=== PATIENT | female | born 1940 | race Caucasian/White ===

== ENCOUNTER → 2016-10-24 | Outpatient (CLI) | payer MEDICARE, BC | LOC: RAD 09:13 | PROVIDERS: ATTEND Urology | DX: R31.0 Gross hematuria (principal) | CPT/HCPCS: 74178; 82565 ==

== ENCOUNTER 2017-07-08 08:47 | Day surgery (SDC) | payer MEDICARE, BC ==
[2017-06-30 09:01] LABS: ABSOLUTE EOSINOPHILS # (AUTO) 0.1 10^3/uL (0.0-0.6); ABSOLUTE LYMPHOCYTES (AUTO) 1.6 10^3/uL (0.5-4.7); ABSOLUTE MONOCYTES (AUTO) 0.5 10^3/uL (0.1-1.4); BASOPHILS % (AUTO) 0.6 % (0-2); EOSINOPHILS % (AUTO) 2.4 % (0-6); HEMATOCRIT 40.7 % (36.0-47.0); HEMOGLOBIN 13.9 g/dL (12.0-15.5); LYMPHOCYTES % (AUTO) 25.7 % (13-45); MEAN CORPUSCULAR HEMOGLOBIN 33.7 pg (27.0-33.4); MEAN CORPUSCULAR HGB CONC 34.1 g/dL (32.0-36.0); MEAN CORPUSCULAR VOLUME 99 fl (80-97); RED BLOOD COUNT 4.12 10^6/uL (3.72-5.28); RED CELL DISTRIBUTION WIDTH 13.9 % (11.5-14.0); SEGMENTED NEUTROPHILS % (AUTO) 63.3 % (42-78); WHITE BLOOD COUNT 6.2 10^3/uL (4.0-10.5)
[2017-06-30 09:12] LABS: PROTHROMBIN TIME 13.3 SEC (11.4-15.4)
[2017-06-30 09:13] LABS: APPEARANCE,URINE SLIGHTLY-CLOUDY; BILIRUBIN,URINE NEGATIVE (NEGATIVE); GLUCOSE, URINE NEGATIVE (NEGATIVE); KETONES,URINE NEGATIVE (NEGATIVE); LEUKOCYTE ESTERASE,URINE MODERATE (NEGATIVE); NITRITE,URINE NEGATIVE (NEGATIVE); PROTEIN,URINE 30 mg/dL (NEGATIVE); URINE SPECIFIC GRAVITY 1.014; UROBILINOGEN,URINE NEGATIVE mg/dL (<2.0)
[~2017-07-08 08:47] MED LIST: CEFAZOLIN 1 GM/D5W RTU 1 GM/50 ML RTUPB IV PRN; LACTATED RINGERS 1000 ML IV PRN; LIDOCAINE 0.5% INJ-PF (5 MG/ML) 50 ML SDV SUBCUT PRN
[2017-07-08] MEDS ORDERED: LIDOCAINE 1% INJ-PF (10 MG/ML) 30 ML SDV ONE ×2 (08:54→10:28)
[2017-07-08] MEDS ORDERED: BUPIVACAINE HCL 0.25% /EPINEPHRINE INJ/PF 30 ML SDV ONE ×2 (08:54→10:28)
[2017-07-08] MEDS ORDERED: TRIAMCINOLONE ACETONIDE INJ 40 MG/1 ML VIAL ONE (08:55)
[2017-07-08 09:29] LABS: PROTHROMBIN TIME 12.4 SEC (11.4-15.4)
[2017-07-08 09:30] LABS: PARTIAL THROMBOPLASTIN TIME 26.2 SEC (23.5-35.8)
[2017-07-08] MEDS ORDERED: PROPOFOL INJ 200 MG/20 ML VIAL IV ONE (10:26)
[2017-07-08] MEDS ORDERED: MIDAZOLAM 2 MG/2 ML INJ ONE (10:26)
[2017-07-08] MEDS ORDERED: DIPHENHYDRAMINE HCL 50 MG/ML VIAL IV PRN (11:13)
[2017-07-08] MEDS ORDERED: MORPHINE SULFATE 10 MG/ML INJ IV PRN (11:13)
[2017-07-08] MEDS ORDERED: OXYCODONE-ACETAMINOPHEN 5-325 MG TABLET PO PRN ×3 (11:13→12:08)
[2017-07-08] MEDS ORDERED: PROMETHAZINE HCL INJ 25 MG/1 ML VIAL IV PRN ×2 (11:13)
--- NOTE | 2017-07-08 13:09 | EKG REPORT ---
SEVERITY:- ABNORMAL ECG - ACCELERATED JUNCTIONAL ESCAPE RHYTHM LVH WITH SECONDARY REPOLARIZATION ABNORMALITY : Confirmed by: Nelson Flores MD 08-Jul-2017 13:08:51
[2017-07-08 14:50] VITALS: BP 189/80
--- NOTE | 2017-07-08 15:31 | OPERATIVE REPORT E ---
Operative Report NAME: EDEN TRAORE : 1940 AGE: 77Y DATE OF SURGERY: 07/08/2017 ROOM: ADDENDUM:NAYE SALES M.D. PROCEDURE: After obtaining informed consent, advising patient of risks and benefits, including serious neurological injury, bleeding, infection, paralysis, aggravation of pain, infection, and , allergic reaction, she was taken to the operating room and placed comfortably in the prone position. Monitors were applied per Anesthesia. She was assessed visually and verbally for comfort. She was then prepped with chlorhexidine followed by a sterile drape. Fluoroscopy was used to evaluate the spine. The L4-5 target space was identified. An attempt was made to use an epidural needle after anesthetizing with 1% lidocaine to enter at the midline L4-5 level. This was not possible, so positioning of the epidural needle was placed at the 3-4 level. Epidurogram was performed with spread and some limitation at the 4-5 level. Landmarks were identified and a suitable track was determined for placement of the mild instrumentation. Beginning on the left side, a small incision was made after local anesthetic of 1% lidocaine was applied. This was repeated on the right side at the selected entrance level. The mild instrumentation trocar was then advanced through the small incision down to the lamina of the 4-5 level on the left. Multiple x-ray views were taken, particularly the oblique and AP to assure satisfactory location. A small amount of additional local anesthetic 1% lidocaine 2 mL was instilled through the trocar. The bone rongeur was then utilized to remove the lamina and ligament at that level on the left in the superior and inferior regions. The tissue sculptor was then utilized to remove additional tissue. Improvement of the contrast spread was noted. This procedure was then repeated on the right as described above. Again, additional improvement in the contrast spread was noted. There was felt to be satisfactorily opening of the epidural space at the level, resolving some of the spinal stenosis. Through the epidural needle, 80 mg of Kenalog was then inserted. All instrumentation was then removed. The region was cleansed. Steri-Strips were placed followed by sterile dressings. The patient was then taken to the PACU for further postoperative care and monitoring. DICTATING PHYSICIAN: NAYE SALES M.D. [id number] PHY#: [id number] ID: [id number] JOB#: [id number] ACCT: [id number] cc:NAYE SALES M.D. >
--- NOTE | 2017-07-08 17:22 | RADIOLOGY REPORT (SQ) ---
EXAM DESCRIPTION: L SPINE 2 VIEWS; NO CHG FLUORO COMPLETED DATE/TIME: 07/08/2017 4:11 pm REASON FOR STUDY: LUMBAR DECOMPRESSION M48.07 SPINAL STENOSIS, LUMBOSACRAL REGION Z79.01 [facility] HOME (CURRENT) USE OF ANTICOAGULANTS COMPARISON: MRI lumbar spine 04/03/2011 CT abdomen pelvis 10/24/2016 FLUOROSCOPY TIME: 4.5 minutes 15 series of digital images saved to PACS. TECHNIQUE: Intra-operative images acquired during surgical procedure to evaluate progress. NUMBER OF IMAGES: Cine fluoroscopic images. LIMITATIONS: None. FINDINGS: Intra procedural imaging and fluoro during procedure by Dr. Hernandez. Please see the oper ative report further details IMPRESSION: Intra procedural imaging and fluoro COMMENT: Quality ID [id number]: Final reports for procedures using fluoroscopy that document radiation exp osure indices, or exposure time and number of fluorographic images (if radiation exposure indices are not available) Please consult full operative report of the attending physician for description of the procedure. TECHNICAL DOCUMENTATION: JOB ID: [id number] [employer]- All Rights Reserved
--- NOTE | 2017-07-08 17:22 | RADIOLOGY REPORT (SQ) ---
EXAM DESCRIPTION: L SPINE 2 VIEWS; NO CHG FLUORO COMPLETED DATE/TIME: 07/08/2017 4:11 pm REASON FOR STUDY: LUMBAR DECOMPRESSION M48.07 SPINAL STENOSIS, LUMBOSACRAL REGION Z79.01 [facility] (CURRENT) USE OF ANTICOAGULANTS COMPARISON: MRI lumbar spine 04/03/2011 CT abdomen pelvis 10/24/2016 FLUOROSCOPY TIME: 4.5 minutes 15 series of digital images saved to PACS. TECHNIQUE: Intra-operative images acquired during surgical procedure to evaluate progress. NUMBER OF IMAGES: Cine fluoroscopic images. LIMITATIONS: None. FINDINGS: Intra procedural imaging and fluoro during procedure by Dr. Hernandez. Please see the oper ative report further details IMPRESSION: Intra procedural imaging and fluoro COMMENT: Quality ID [id number]: Final reports for procedures using fluoroscopy that document radiation exp osure indices, or exposure time and number of fluorographic images (if radiation exposure indices are not available) Please consult full operative report of the attending physician for description of the procedure. TECHNICAL DOCUMENTATION: JOB ID: [id number] [employer]- All Rights Reserved
--- NOTE | 2017-07-09 14:51 | OPERATIVE REPORT E ---
Operative Report NAME: EDEN TRAORE : 1940 AGE: 77Y DATE OF SURGERY: ROOM: PREOPERATIVE DIAGNOSIS: LUMBAR SPINAL STENOSIS WITH NEUROGENIC CLAUDICATION L4-5 LEVEL. POSTOPERATIVE DIAGNOSIS: LUMBAR SPINAL STENOSIS WITH NEUROGENIC CLAUDICATION L4-5 LEVEL. OPERATIVE PROCEDURE: Minimally invasive lumbar decompression at L4-5 using bilateral approach under fluoroscopic guidance lumbar epidural steroid injection. PROCEDURE: After obtaining informed consent, advising patient of risks and benefits, including serious neurological injury, bleeding, infection, paralysis, aggravation of pain, infection, and , allergic reaction, she was taken to the operating room and placed comfortably in the prone position. Monitors were applied per Anesthesia. She was assessed visually and verbally for comfort. She was then prepped with chlorhexidine followed by a sterile drape. Fluoroscopy was used to evaluate the spine. The L4-5 target space was identified. An attempt was made to use an epidural needle after anesthetizing with 1% lidocaine to enter at the midline L4-5 level. This was not possible, so positioning of the epidural needle was placed at the 3-4 level. Epidurogram was performed with spread and some limitation at the 4-5 level. Landmarks were identified and a suitable track was determined for placement of the mild instrumentation. Beginning on the left side, a small incision was made after local anesthetic of 1% lidocaine was applied. This was repeated on the right side at the selected entrance level. The mild instrumentation trocar was then advanced through the small incision down to the lamina of the 4-5 level on the left. Multiple x-ray views were taken, particularly the oblique and AP to assure satisfactory location. A small amount of additional local anesthetic 1% lidocaine 2 mL was instilled through the trocar. The bone rongeur was then utilized to remove the lamina and ligament at that level on the left in the superior and inferior regions. The tissue sculptor was then utilized to remove additional tissue. Improvement of the contrast spread was noted. This procedure was then repeated on the right as described above. Again, additional improvement in the contrast spread was noted. There was felt to be satisfactorily opening of the epidural space at the level, resolving some of the spinal stenosis. Through the epidural needle, 80 mg of Kenalog was then inserted. All instrumentation was then removed. The region was cleansed. Steri-Strips were placed followed by sterile dressings. The patient was then taken to the PACU for further postoperative care and monitoring. DICTATING PHYSICIAN: NAYE SALES M.D. [id number] PHY#: [id number] ID: [id number] JOB#: [id number] ACCT: [id number] cc:NAYE SALES M.D. >
== END 2017-07-08 13:44 | disposition home or self-care (01) ==
LOC: OROUT 08:47
PROVIDERS: ATTEND Pain Medicine Interventional Pain Medicine
PROC: 01NB3ZZ Release Lumbar Nerve, Percutaneous Approach (ICD-10-PCS; principal; 2017-07-08 11:00)
DX: M48.07 Spinal stenosis, lumbosacral region (principal); Z00.6 Encounter for examination for normal comparison and control in clinical research program; I49.9 Cardiac arrhythmia, unspecified; I10 Essential (primary) hypertension; Z86.73 Personal history of transient ischemic attack (TIA), and cerebral infarction without residual deficits; Z79.01 Long term (current) use of anticoagulants; Z87.892 Personal history of anaphylaxis
CPT/HCPCS: 36415 ×2; 85025; 85610 ×2; 85730 ×2; 81001; 72100; 93005; 93010; 0275T; Q9966; J2250; J3490 ×3; J0690; J2704; 1936

== ENCOUNTER → 2018-05-13 | Outpatient (CLI) | payer MEDICARE, BC ==
[2018-05-13 09:22] LABS: ABSOLUTE EOSINOPHILS # (AUTO) 0.2 10^3/uL (0.0-0.6); ABSOLUTE LYMPHOCYTES (AUTO) 1.8 10^3/uL (0.5-4.7); ABSOLUTE MONOCYTES (AUTO) 0.5 10^3/uL (0.1-1.4); ABSOLUTE NEUT (AUTO) 2.5 10^3/uL (1.7-8.2); BASOPHILS % (AUTO) 0.6 % (0-2); EOSINOPHILS % (AUTO) 4.7 % (0-6); HEMATOCRIT 37.5 % (36.0-47.0); HEMOGLOBIN 12.6 g/dL (12.0-15.5); LYMPHOCYTES % (AUTO) 36.3 % (13-45); MEAN CORPUSCULAR HEMOGLOBIN 32.8 pg (27.0-33.4); MEAN CORPUSCULAR HGB CONC 33.6 g/dL (32.0-36.0); MEAN CORPUSCULAR VOLUME 98 fl (80-97); MONOCYTES % (AUTO) 10.1 % (3-13); PLATELET COUNT 262 10^3/uL (150-450); RED BLOOD COUNT 3.84 10^6/uL (3.72-5.28); RED CELL DISTRIBUTION WIDTH 14.1 % (11.5-14.0); SEGMENTED NEUTROPHILS % (AUTO) 48.3 % (42-78); TOTAL CELLS COUNTED % (AUTO) 100 %; WHITE BLOOD COUNT 5.1 10^3/uL (4.0-10.5)
[2018-05-13 09:42] LABS: ALANINE AMINOTRANSFERASE 25 U/L (9-52); ALBUMIN 3.8 g/dL (3.5-5.0); ALKALINE PHOSPHATASE 66 U/L (38-126); ANION GAP 8 (5-19); ASPARTATE AMINO TRANSFERASE 20 U/L (14-36); BILIRUBIN,DIRECT 0.3 mg/dL (0.0-0.4); BILIRUBIN,TOTAL 0.3 mg/dL (0.2-1.3); BLOOD UREA NITROGEN 22 mg/dL (7-20); CALCIUM 9.6 mg/dL (8.4-10.2); CARBON DIOXIDE 28 mmol/L (22-30); CHLORIDE 107 mmol/L (98-107); GLUCOSE 96 mg/dL (75-110); POTASSIUM 3.8 mmol/L (3.6-5.0); SODIUM 142.9 mmol/L (137-145); TOTAL PROTEIN 6.7 g/dL (6.3-8.2)
== END ==
LOC: LAB 08:40
PROVIDERS: ATTEND Physician Assistant
DX: I10 Essential (primary) hypertension (principal); I48.2 Chronic atrial fibrillation; R19.7 Diarrhea, unspecified; R26.81 Unsteadiness on feet
CPT/HCPCS: 36415; 80053; 85025

== ENCOUNTER 2018-05-20 10:37 | Emergency (ER) | payer MEDICARE, BC ==
--- NOTE | 2018-05-20 11:08 | ER Document Report ---
ED Skin Rash/Insect Bite/Abscs - General Chief Complaint: Skin Problem Stated Complaint: ARM WOUND Time Seen by Provider: 05/20/18 11:06 Mode of Arrival: Ambulatory Information source: Patient Notes: Chief complaint: Left upper arm wound History of complain:( obtained from----patient) 78 years old female sustaining a wound over the left upper arm a week ago she was putting antibiotic ointment and healing well except 3 days ago she put her gauze and it got stuck to the wound and unable to take it out. Therefore presented to the ED Denies any fever chills or other constitutional symptoms Onset: As above Duration: Last 1 week Severity: Mild Quality: No pain Context: Contrast as described above Exacerbating factor and relieving factors: None REVIEW OF SYSTEMS: CONSTITUTIONAL : Denies fever, chills, or sweats. Denies recent illness. EENT: Denies eye, ear, throat, or mouth pain or symptoms. Denies nasal or sinus congestion or discharge. Denies throat, tongue, or mouth swelling or difficulty swallowing. CARDIOVASCULAR: Denies chest pain. Denies palpitations or racing or irregular heart beat. Denies ankle edema. RESPIRATORY: Denies cough, cold, or chest congestion. Denies shortness of breath, difficulty breathing, or wheezing. GASTROINTESTINAL: Denies distention. Denies nausea, vomiting, or diarrhea. Denies blood in vomitus, stools, or per rectum. Denies black, tarry stools. Denies constipation. GENITOURINARY: Denies difficulty urinating, painful urination, burning, frequency, blood in urine, or discharge. FEMALE GENITOURINARY: Denies vaginal bleeding, heavy or abnormal periods, irregular periods. Denies vaginal discharge or odor. MUSCULOSKELETAL: Denies back or neck pain or stiffness. Denies joint pain or swelling. SKIN: Denies rash, lesions or sores. HEMATOLOGIC : Denies easy bruising or bleeding. LYMPHATIC: Denies swollen, enlarged glands. NEUROLOGICAL: Denies confusion or altered mental status. Denies passing out or loss of consciousness. Denies dizziness or lightheadedness. Denies headache. Denies weakness or paralysis or loss of use of either side. Denies problems with gait or speech. Denies sensory loss, numbness, or tingling. Denies seizures. PSYCHIATRIC: Denies anxiety or stress. Denies depression, suicidal ideation, or homicidal ideation. ALL OTHER SYSTEMS REVIEWED AND NEGATIVE. PHYSICAL EXAMINATION: GENERAL: Well-appearing, well-nourished and in no acute distress. Pleasant female not in any acute distress HEAD: Atraumatic, normocephalic. EYES: Pupils equal round and reactive to light, extraocular movements intact, conjunctiva are normal. ENT: Nares patent, oropharynx clear without exudates. Moist mucous membranes. NECK: Normal range of motion, supple without lymphadenopathy LUNGS: Breath sounds clear to auscultation bilaterally and equal. No wheezes rales or rhonchi. HEART: Regular rate and rhythm without murmurs ABDOMEN: Soft, nontender, nondistended abdomen. No guarding, no rebound. No masses appreciated. Examination of genitals-deferred Musculoskeletal: Normal range of motion, no pitting or edema. No cyanosis. NEUROLOGICAL: Cranial nerves grossly intact. Normal speech, normal gait. Normal sensory, motor exams PSYCH: Normal mood, normal affect. SKIN: Skin over the left lateral arm over the medial region has extensive erythematous scarring wound of 4" x 3" noted. The middle a gauze got stuck in the and unable to remove. No surrounding erythema noted. Is not warm or tender to touch. Dictation was performed using [employer] voice recognition software TRAVEL OUTSIDE OF THE [place] IN LAST 30 DAYS: No - HPI Notes: Dictated - Related Data Allergies/Adverse Reactions: fentanyl [From Duragesic] Allergy (Mild, Verified 05/20/18 10:42) felt weird, couldn't be still bee venom protein (honey bee) Allergy (Verified 05/20/18 10:42) Anaphylaxis Past Medical History - General Information source: Patient - Social History Smoking Status: Never Smoker Frequency of alcohol use: Rare Drug Abuse: None Lives with: Family Family History: Reviewed & Not Pertinent, Other - Mom had end stage kidney disease - Past Medical History Cardiac Medical History: Reports: Hx Hypertension - ON MEDS Denies: Hx Congestive Heart Failure, Hx Coronary Artery Disease, Hx Heart Attack, Hx Heart Murmur Pulmonary Medical History: Reports: Hx Asthma - H/O WHEN YOUNGER, NO PRESENT TREATMENT, Hx Pneumonia - "YRS AGO" Denies: Hx Bronchitis, Hx COPD, Hx Tuberculosis Neurological Medical History: Denies: Hx Cerebrovascular Accident, Hx Seizures Renal/ Medical History: Reports: Hx Kidney Stones GI Medical History: Reports: Hx Gastroesophageal Reflux Disease, Hx Hiatal Hernia, Hx Ulcer. Denies: Hx Hepatitis Musculoskeletal Medical History: Reports Hx Arthritis - GENERALIZED Infectious Medical History: Denies: Hx Hepatitis Past Surgical History: Reports: Hx Hysterectomy, Hx Orthopedic Surgery. Denies : Hx Bowel Surgery, Hx Mastectomy, Hx Open Heart Surgery, Hx Pacemaker - Immunizations Hx Diphtheria, Pertussis, Tetanus Vaccination: Yes Hx Pneumococcal Vaccination: 09/01/13 Review of Systems - Review of Systems Notes: Dictated Physical Exam - Vital signs Vitals: Temp Pulse Resp BP Pulse Ox 97.6 F 58 L 14 128/65 H 95 05/20/18 10:45 05/20/18 10:45 05/20/18 10:45 05/20/18 10:45 05/20/18 10:45 - Notes Notes: Dictated Course - Re-evaluation Re-evalutation: 05/20/18 12:13 Adhered dressing was removed after infiltrating with lidocaine - Vital Signs Vital signs: Temp Pulse Resp BP Pulse Ox 97.6 F 58 L 14 128/65 H 95 05/20/18 10:45 05/20/18 10:45 05/20/18 10:45 05/20/18 10:45 05/20/18 10:45 Discharge - Discharge Clinical Impression: Wound of left upper extremity Qualifiers: Encounter type: initial encounter Qualified Code(s): S41.102A - Unspecified open wound of left upper arm, initial encounter Condition: Fair Disposition: HOME, SELF-CARE Instructions: Wound Infection ([facility]) Prescriptions: Cephalexin Monohydrate [Keflex 500 mg Capsule] 500 mg PO Q6H 5 Days capsule Referrals: SAMI BONILLA PA-C [Primary Care Provider] - Follow up as needed
[2018-05-20 12:22] VITALS: BP 137/69
== END 2018-05-20 12:22 | disposition home or self-care (01) ==
LOC: ER 10:37
DX: S41.102A Unspecified open wound of left upper arm, initial encounter (principal); X58.XXXA Exposure to other specified factors, initial encounter; Y93.9 Activity, unspecified; Y92.9 Unspecified place or not applicable
CPT/HCPCS: 99283

== ENCOUNTER 2018-08-11 19:12 | Emergency (ER) | payer OTHER, MEDICARE, BC ==
[2018-08-11] MEDS ORDERED: MORPHINE SULFATE 10 MG/ML INJ IV ONE (19:40)
[2018-08-11] MEDS ORDERED: ONDANSETRON HCL INJ/PF 4 MG/2 ML SDV IV ONE (19:40)
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
[2018-08-11 20:41] LABS: PROTHROMBIN TIME 15.8 SEC (11.4-15.4)
[2018-08-11 20:42] LABS: PARTIAL THROMBOPLASTIN TIME 49.8 SEC (23.5-35.8)
[2018-08-11 21:13] LABS: ABSOLUTE EOSINOPHILS # (AUTO) 0.2 10^3/uL (0.0-0.6); ABSOLUTE LYMPHOCYTES (AUTO) 1.8 10^3/uL (0.5-4.7); ABSOLUTE MONOCYTES (AUTO) 0.5 10^3/uL (0.1-1.4); ABSOLUTE NEUT (AUTO) 3.7 10^3/uL (1.7-8.2); BASOPHILS % (AUTO) 0.3 % (0-2); EOSINOPHILS % (AUTO) 3.4 % (0-6); HEMATOCRIT 38.4 % (36.0-47.0); LYMPHOCYTES % (AUTO) 28.6 % (13-45); MEAN CORPUSCULAR HEMOGLOBIN 32.5 pg (27.0-33.4); MEAN CORPUSCULAR HGB CONC 33.9 g/dL (32.0-36.0); MEAN CORPUSCULAR VOLUME 96 fl (80-97); MONOCYTES % (AUTO) 7.8 % (3-13); PLATELET COUNT 247 10^3/uL (150-450); RED CELL DISTRIBUTION WIDTH 14.2 % (11.5-14.0); SEGMENTED NEUTROPHILS % (AUTO) 59.9 % (42-78); TOTAL CELLS COUNTED % (AUTO) 100 %; WHITE BLOOD COUNT 6.2 10^3/uL (4.0-10.5)
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
[2018-08-11 21:36] LABS: ALANINE AMINOTRANSFERASE 20 U/L (9-52); ALBUMIN 4.2 g/dL (3.5-5.0); ALKALINE PHOSPHATASE 82 U/L (38-126); ANION GAP 7 (5-19); ASPARTATE AMINO TRANSFERASE 25 U/L (14-36); BILIRUBIN,DIRECT 0.3 mg/dL (0.0-0.4); BILIRUBIN,TOTAL 0.5 mg/dL (0.2-1.3); BLOOD UREA NITROGEN 11 mg/dL (7-20); CALCIUM 9.8 mg/dL (8.4-10.2); CARBON DIOXIDE 34 mmol/L (22-30); CHLORIDE 103 mmol/L (98-107); CREATINE KINASE 60 U/L (30-135); GLUCOSE 116 mg/dL (75-110); POTASSIUM 3.7 mmol/L (3.6-5.0); SODIUM 143.7 mmol/L (137-145); TOTAL PROTEIN 7.2 g/dL (6.3-8.2)
[2018-08-11 21:47] LABS: CREATINE KINASE MB 1.13 ng/mL (<4.55)
[2018-08-11 21:49] LABS: TROPONIN I < 0.012 ng/mL
[2018-08-11 22:37] LABS: APPEARANCE,URINE SLIGHTLY-CLOUDY; BILIRUBIN,URINE NEGATIVE (NEGATIVE); COLOR,URINE YELLOW; GLUCOSE, URINE NEGATIVE (NEGATIVE); KETONES,URINE NEGATIVE (NEGATIVE); LEUKOCYTE ESTERASE,URINE LARGE (NEGATIVE); NITRITE,URINE POSITIVE (NEGATIVE); PROTEIN,URINE NEGATIVE (NEGATIVE); URINE SPECIFIC GRAVITY 1.011; UROBILINOGEN,URINE NEGATIVE mg/dL (<2.0)
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
--- NOTE | 2018-08-11 23:34 | EKG REPORT ---
SEVERITY:- ABNORMAL ECG - SINUS RHYTHM [facility]H WITH SECONDARY REPOLARIZATION ABNORMALITY : Confirmed by: Belinda Lutz MD 11-Aug-2018 23:34:13
[2018-08-11] MEDS ORDERED: KETOROLAC TROMETHAMINE INJ/PF 30 MG/1 ML SDV IV ONE (23:40)
[2018-08-11] MEDS ORDERED: HYDROCODONE/ACETAMINOPHEN 5-325 MG TABLET PO ONE (23:40)
[2018-08-12] MEDS ORDERED: SULFAMETHOXAZOLE/TRIMETHOPRIM 800-160 MG TABLET PO ONE (00:05)
[2018-08-12] MEDS ORDERED: HYDROCODONE/ACETAMINOPHEN 5-325 MG (6 TAB/ER DISP) PO PRN (00:15)
[2018-08-12 00:47] VITALS: BP 167/79
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
== END 2018-08-12 00:46 | disposition home or self-care (01) ==
LOC: ER 19:12
DX: S16.1XXA Strain of muscle, fascia and tendon at neck level, initial encounter (principal); S20.211A Contusion of right front wall of thorax, initial encounter; S60.211A Contusion of right wrist, initial encounter; R07.9 Chest pain, unspecified; R51 Headache; M54.2 Cervicalgia; M25.531 Pain in right wrist; M25.561 Pain in right knee; M25.562 Pain in left knee; V49.40XA Driver injured in collision with unspecified motor vehicles in traffic accident, initial encounter; N39.0 Urinary tract infection, site not specified; M47.9 Spondylosis, unspecified; R10.9 Unspecified abdominal pain; R11.0 Nausea; I10 Essential (primary) hypertension; Z88.5 Allergy status to narcotic agent; Z91.030 Bee allergy status
CPT/HCPCS: 93005; 99284; 96374; 96375; 36415; 87086; 82553; 82550; 85025; 85610; 85730; 87088; 80053; 81001; 84484; 87186; 71045; 73100; 73560; 70450; 71260; 72125; 74177; 93010; J1885; J2270; J2405

== ENCOUNTER 2018-10-13 09:06 | Emergency (ER) | payer BC, MEDICARE, OTHER ==
--- NOTE | 2018-10-13 09:23 | ER Document Report ---
ED General - General Chief Complaint: Altered Mental Status Stated Complaint: ALTERED MENTAL STATUS Time Seen by Provider: 10/13/18 09:20 Primary Care Provider: SAMI BONILLA PA-C [Primary Care Provider] - Follow up as needed Notes: 78-year-old female with A. fib on Pradaxa and sotalol and? Taking primidone for something other than seizures per her who was last seen normal at 8 PM yesterday and found altered about 730 this morning. Was repeating questions and not being herself. No facial droop or slurred speech. Patient is unable to give much of a history. TRAVEL OUTSIDE OF THE [place] IN LAST 30 DAYS: No - Related Data Allergies/Adverse Reactions: fentanyl [From Duragesic] Allergy (Mild, Verified 10/13/18 09:10) felt weird, couldn't be still bee venom protein (honey bee) Allergy (Verified 10/13/18 09:10) Anaphylaxis Past Medical History - Social History Smoking Status: Never Smoker - A. fib Family History: Reviewed & Not Pertinent, Other - Mom had end stage kidney disease - Past Medical History Cardiac Medical History: Reports: Hx Atrial Fibrillation, Hx Hypertension - ON MEDS Denies: Hx Congestive Heart Failure, Hx Coronary Artery Disease, Hx Heart Attack, Hx Heart Murmur Pulmonary Medical History: Reports: Hx Asthma - H/O WHEN YOUNGER, NO PRESENT TREATMENT, Hx Pneumonia - "YRS AGO" Denies: Hx Bronchitis, Hx COPD, Hx Tuberculosis Neurological Medical History: Denies: Hx Cerebrovascular Accident, Hx Seizures Renal/ Medical History: Reports: Hx Kidney Stones. Denies: Hx Peritoneal Dialysis GI Medical History: Reports: Hx Gastroesophageal Reflux Disease, Hx Hiatal Hernia, Hx Ulcer. Denies: Hx Hepatitis Musculoskeletal Medical History: Reports Hx Arthritis - GENERALIZED Infectious Medical History: Denies: Hx Hepatitis Past Surgical History: Reports: Hx Appendectomy, Hx Hysterectomy, Hx Neurologic Surgery - Neck fusion, Hx Orthopedic Surgery. Denies: Hx Bowel Surgery, Hx Mastectomy, Hx Open Heart Surgery, Hx Pacemaker - Immunizations Hx Diphtheria, Pertussis, Tetanus Vaccination: Yes Hx Pneumococcal Vaccination: 09/01/13 Review of Systems - Review of Systems Notes: REVIEW OF SYSTEMS Not obtained: Altered mental status PHYSICAL EXAMINATION General: No acute distress, well-nourished Head: Atraumatic, normocephalic ENT: Mouth normal, oropharynx moist, no exudates or tonsillar enlargement Eyes: Conjunctiva normal, pupils equal, lids normal Neck: No JVD, supple, no guarding CVS: Normal rate, regular rhythm, no murmurs Resp: No resp distress, equal and normal breath sounds bilaterally GI: Nondistended, soft, no tenderness to palpation, no rebound or guarding Ext: No deformities, no edema, normal range of motion in upper and lower ext Back: No CVA or midline TTP Skin: No rash, warm Lymphatic: No lymphadeopathy noted Neuro: Awake, alert. Face symmetric. His name but is not sure where she is, date or month. Follows commands and so I can test her cranial nerves which are all normal 2 through 12. Intermittent myoclonic jerking, subtle versus aste rixis of the upper extremities, not replicated on the lower extremities with no clonus. There is no true weakness of the upper lower extremities and sensation is normal throughout. Speech is fluent memory is impaired. Physical Exam - Vital signs Vitals: Temp Pulse Resp BP Pulse Ox 98.4 F 61 20 187/89 H 98 10/13/18 09:13 10/13/18 09:13 10/13/18 09:13 10/13/18 09:13 10/13/18 09:13 Course - Re-evaluation Re-evalutation: 10/13/18 09:23 Patient presents with altered mental status last seen normal 13 hours ago, with hypertension, and multiple stroke risk factors, but is contraindicated for systemic TPA secondary to Pradaxa use. Her race score is 0 so she does not qualify for emergent stroke activation via the elbow pathway. That said she will get a full stroke workup in the ED. We will also do an infectious workup. 10/13/18 10:43 Since urine is negative, labs show mild hypernatremia but no examination for altered mental status. CT negative for large territory infarct. Reassessed at 10:40 AM. Still quite altered and confused and this time a little bit sleepier but protecting airway. Blood pressure remains elevated in the 180s. At this time the likely diagnosis would be either hypertensive encephalopathy postictal state or avulsive status epilepticus. I still do not have an expiration of what the patient takes primidone. She will need further neurologic evaluation, and since we do not have that here, she will be transferred to [facility]. Content of transfer center 10:44 AM. 10/13/18 13:[address] Brink who accepted the patient to the progressive care unit, Dr. Mart is the attending. Reassessed at 1 PM, stable for transfer. - Vital Signs Vital signs: Temp Pulse Resp BP Pulse Ox 98.4 F 57 L 19 147/62 H 97 10/13/18 09:13 10/13/18 12:00 10/13/18 12:00 10/13/18 12:00 10/13/18 12:00 - Laboratory Result Diagrams: 10/13/18 09:23 10/13/18 09:23 Laboratory results interpreted by me: 10/13/18 10/13/18 10/13/18 09:23 09:23 09:23 RDW 14.6 H APTT 36.6 H Sodium 145.5 H Potassium 3.5 L Chloride 109 H Carbon Dioxide 31 H Est GFR (Non-Af Amer) 58 L ALT < 6 L Urine Protein Urine Blood 10/13/18 09:30 RDW APTT Sodium Potassium Chloride Carbon Dioxide Est GFR (Non-Af Amer) ALT Urine Protein 100 H Urine Blood SMALL H - Diagnostic Test Radiology reviewed: Image reviewed, Reports reviewed - EKG Interpretation by Me EKG shows normal: Sinus rhythm Rate: Normal Rhythm: NSR When compared to previous EKG there are: No significant change Critical Care Note - Critical Care Note Total time excluding time spent on procedures (mins): 35 Comments: The above patient is critically ill. Not including procedures, but including direct re-evaluations, speaking with patient and/or consultants, interpreting results, and documenting, I spent the total amount of minute listed listed above on critical care time Discharge - Discharge Clinical Impression: Hypertensive encephalopathy Condition: Critical Disposition: [facility] Referrals: SAMI BONILLA PA-C [Primary Care Provider] - Follow up as needed
[2018-10-13 09:32] LABS: ABSOLUTE EOSINOPHILS # (AUTO) 0.1 10^3/uL (0.0-0.6); ABSOLUTE LYMPHOCYTES (AUTO) 1.6 10^3/uL (0.5-4.7); ABSOLUTE MONOCYTES (AUTO) 0.7 10^3/uL (0.1-1.4); ABSOLUTE NEUT (AUTO) 7.5 10^3/uL (1.7-8.2); BASOPHILS % (AUTO) 0.3 % (0-2); EOSINOPHILS % (AUTO) 1.3 % (0-6); HEMATOCRIT 40.2 % (36.0-47.0); HEMOGLOBIN 13.7 g/dL (12.0-15.5); LYMPHOCYTES % (AUTO) 16.4 % (13-45); MEAN CORPUSCULAR HEMOGLOBIN 32.7 pg (27.0-33.4); MEAN CORPUSCULAR HGB CONC 34.1 g/dL (32.0-36.0); MEAN CORPUSCULAR VOLUME 96 fl (80-97); MONOCYTES % (AUTO) 6.7 % (3-13); PLATELET COUNT 297 10^3/uL (150-450); RED BLOOD COUNT 4.19 10^6/uL (3.72-5.28); RED CELL DISTRIBUTION WIDTH 14.6 % (11.5-14.0); SEGMENTED NEUTROPHILS % (AUTO) 75.3 % (42-78); TOTAL CELLS COUNTED % (AUTO) 100 %
[2018-10-13 09:50] LABS: ALANINE AMINOTRANSFERASE < 6 U/L (9-52); ALBUMIN 4.5 g/dL (3.5-5.0); ALKALINE PHOSPHATASE 87 U/L (38-126); ANION GAP 6 (5-19); ASPARTATE AMINO TRANSFERASE 18 U/L (14-36); BILIRUBIN,DIRECT 0.3 mg/dL (0.0-0.4); BILIRUBIN,TOTAL 0.6 mg/dL (0.2-1.3); BLOOD UREA NITROGEN 14 mg/dL (7-20); CALCIUM 9.4 mg/dL (8.4-10.2); CARBON DIOXIDE 31 mmol/L (22-30); CHLORIDE 109 mmol/L (98-107); CREATINE KINASE 34 U/L (30-135); GLUCOSE 110 mg/dL (75-110); POTASSIUM 3.5 mmol/L (3.6-5.0); SODIUM 145.5 mmol/L (137-145); TOTAL PROTEIN 7.4 g/dL (6.3-8.2)
[2018-10-13 09:57] LABS: INTERNATIONAL RATION (INR) 1.05; PROTHROMBIN TIME 14.2 SEC (11.4-15.4)
[2018-10-13 09:58] LABS: PARTIAL THROMBOPLASTIN TIME 36.6 SEC (23.5-35.8)
--- NOTE | 2018-10-13 10:01 | RADIOLOGY REPORT (SQ) ---
EXAM DESCRIPTION: CT HEAD WITHOUT COMPLETED DATE/TIME: 10/13/2018 9:53 am REASON FOR STUDY: Pretension altered mental status COMPARISON: 08/11/2018 TECHNIQUE: Axial images acquired through the brain without intravenous contrast. Images reviewed wi th bone, brain and subdural windows. Additional sagittal and coronal reconstructions were generated. Images stored on PACS. All CT scanners at this facility use dose modulation, iterative reconstruction, and/or weight based d osing when appropriate to reduce radiation dose to as low as reasonably achievable (ALARA). [facility]: Dose Right [facility]: CareDose [facility]: Dose Right [facility]: Teradose 4D [facility]: Mapbar RADIATION DOSE: CT Rad equipment meets quality standard of care and radiation dose reduction techniq ues were employed. CTDIvol: 53.2 mGy. DLP: 1070 mGy-cm. mGy. LIMITATIONS: None. FINDINGS: VENTRICLES: Prominent. CEREBRUM: No masses. No hemorrhage. No midline shift. Areas of low density in the white matter mos t likely due to chronic micro-vascular ischemic change. No evidence for acute infarction. CEREBELLUM: No masses. No hemorrhage. No alteration of density. No evidence for acute infarction. EXTRAAXIAL SPACES: Mild age-related involutional change. No fluid collections. No masses. ORBITS AND GLOBE: No intra- or extraconal masses. Normal contour of globe without masses. CALVARIUM: No fracture. PARANASAL SINUSES: Chronic left maxillary sinusitis. SOFT TISSUES: No mass or hematoma. OTHER: No other significant finding. IMPRESSION: MILD CHRONIC CHANGES OF ATROPHY AND MICROVASCULAR ISCHEMIA. NO ACUTE PROCESS. EVIDENCE OF ACUTE STROKE: NO. TECHNICAL DOCUMENTATION: JOB ID: [id number] Quality ID # [id number]: Final reports with documentation of one or more dose reduction techniques (e.g., Au tomated exposure control, adjustment of the mA and/or kV according to patient size, use of iterative reconstruction technique) 2010 [employer]- All Rights Reserved Reading location - IP/workstation name: [email or web address]
[2018-10-13 10:02] LABS: CREATINE KINASE MB 0.62 ng/mL (<4.55); TROPONIN I < 0.012 ng/mL
[2018-10-13 10:25] LABS: APPEARANCE,URINE CLEAR; BILIRUBIN,URINE NEGATIVE (NEGATIVE); COLOR,URINE YELLOW; GLUCOSE, URINE NEGATIVE (NEGATIVE); KETONES,URINE NEGATIVE (NEGATIVE); LEUKOCYTE ESTERASE,URINE NEGATIVE (NEGATIVE); NITRITE,URINE NEGATIVE (NEGATIVE); PROTEIN,URINE 100 mg/dL (NEGATIVE); URINE SPECIFIC GRAVITY 1.014; UROBILINOGEN,URINE NEGATIVE mg/dL (<2.0)
[2018-10-13] MEDS ORDERED: LABETALOL HCL INJ 20 MG/4 ML DISP.SYRIN IV ONE ×2 (10:40→13:53)
[2018-10-13 12:20] VITALS: BP 147/62
--- NOTE | 2018-10-13 17:53 | EKG REPORT ---
SEVERITY:- ABNORMAL ECG - SINUS RHYTHM PROBABLE LVH WITH SECONDARY REPOL ABNRM : Confirmed by: Belinda Lutz MD 13-Oct-2018 17:51:47
== END 2018-10-13 14:01 | disposition short-term general hospital (02) ==
LOC: ER 09:06
DX: I67.4 Hypertensive encephalopathy (principal); R41.0 Disorientation, unspecified; I10 Essential (primary) hypertension; E87.0 Hyperosmolality and hypernatremia; I48.91 Unspecified atrial fibrillation; Z79.02 Long term (current) use of antithrombotics/antiplatelets; Z79.899 Other long term (current) drug therapy; J45.909 Unspecified asthma, uncomplicated; Z88.5 Allergy status to narcotic agent; Z91.030 Bee allergy status; Z87.892 Personal history of anaphylaxis
CPT/HCPCS: 93005; 96376; 99291; 96374; 36415; 87086; 82553; 82962; 82550; 83735; 85025; 85610; 85730; 80053; 81001; 84484; 70450; 93010; J3490

== ENCOUNTER 2019-01-06 15:42 | Emergency (ER) | payer BC, MEDICARE, OTHER ==
--- NOTE | 2019-01-06 17:11 | ER Document Report ---
ED Medical Screen (RME) - General Chief Complaint: Abdominal Pain Stated Complaint: ABDOMINAL PAIN Time Seen by Provider: 01/06/19 17:04 Primary Care Provider: SAMI VIVAR PA-C [Primary Care Provider] - Follow up as needed Mode of Arrival: Wheelchair Information source: Patient Notes: Patient was sent over by Sami vivar at [facility] for right upper quad abdominal pain. Patient reports that started 2 days ago. Patient reports she was walking to the mailbox became short of breath on exertion and almost passed out to the pain. Denies other symptoms such as fever vomiting diarrhea. Reports she has chronic back pain. Complains of back pain but reports she is always had that. I have greeted and performed a rapid initial assessment of this patient. A comprehensive ED assessment and evaluation of the patient, analysis of test results and completion of the medical decision making process will be conducted by additional ED providers. Dictation of this chart was performed using voice recognition software; therefore, there may be some unintended grammatical errors. TRAVEL OUTSIDE OF THE [place] IN LAST 30 DAYS: No - Related Data Allergies/Adverse Reactions: fentanyl [From Duragesic] Allergy (Mild, Verified 01/06/19 15:45) felt weird, couldn't be still bee venom protein (honey bee) Allergy (Verified 01/06/19 15:45) Anaphylaxis Past Medical History - Past Medical History Cardiac Medical History: Reports: Hx Atrial Fibrillation, Hx Hypertension - ON MEDS Denies: Hx Congestive Heart Failure, Hx Coronary Artery Disease, Hx Heart Attack, Hx Heart Murmur Pulmonary Medical History: Reports: Hx Asthma - H/O WHEN YOUNGER, NO PRESENT TREATMENT, Hx Pneumonia - "YRS AGO" Denies: Hx Bronchitis, Hx COPD, Hx Tuberculosis Neurological Medical History: Denies: Hx Cerebrovascular Accident, Hx Seizures Renal/ Medical History: Reports: Hx Kidney Stones. Denies: Hx Peritoneal Dialysis GI Medical History: Reports: Hx Gastroesophageal Reflux Disease, Hx Hiatal Hernia, Hx Ulcer. Denies: Hx Hepatitis Musculoskeltal Medical History: Reports Hx Arthritis - GENERALIZED Infectious Medical History: Denies: Hx Hepatitis Past Surgical History: Reports: Hx Appendectomy, Hx Hysterectomy, Hx Neurologic Surgery - Neck fusion, Hx Orthopedic Surgery. Denies: Hx Bowel Surgery, Hx Mastectomy, Hx Open Heart Surgery, Hx Pacemaker - Immunizations Hx Diphtheria, Pertussis, Tetanus Vaccination: Yes History of Influenza Vaccine for 06/2017 - 10/2017 Season: No Physical Exam - Vital signs Vitals: Temp Pulse Resp BP Pulse Ox 98.5 F 56 L 18 140/90 H 96 01/06/19 15:57 01/06/19 15:57 01/06/19 15:57 01/06/19 15:57 01/06/19 15:57 Course - Vital Signs Vital signs: Temp Pulse Resp BP Pulse Ox 98.5 F 56 L 18 140/90 H 96 01/06/19 15:57 01/06/19 15:57 01/06/19 15:57 01/06/19 15:57 01/06/19 15:57 Doctor's Discharge - Discharge Referrals: SAMI VIVAR PA-C [Primary Care Provider] - Follow up as needed
--- NOTE | 2019-01-06 17:43 | RADIOLOGY REPORT (SQ) ---
EXAM DESCRIPTION: CHEST 2 VIEWS COMPLETED DATE/TIME: 01/06/2019 5:28 pm REASON FOR STUDY: ruq abd pain/rib pain COMPARISON: 08/11/2018 TECHNIQUE: Frontal and lateral radiographic views of the chest acquired. NUMBER OF VIEWS: Two view. LIMITATIONS: None. FINDINGS: LUNGS AND PLEURA: No pneumothorax. No consolidation or pleural effusion. Similar left bas ilar scarring and interstitial changes bilaterally. MEDIASTINUM AND HILAR STRUCTURES: Stable. HEART AND VASCULAR STRUCTURES: Stable. BONES: No acute findings. HARDWARE: None in the chest. OTHER: No other significant finding. IMPRESSION: NO ACUTE FINDINGS. TECHNICAL DOCUMENTATION: JOB ID: [id number] [place]-72 2010 [employer]- All Rights Reserved Reading location - IP/workstation name: [email or web address]
[2019-01-06 18:21] LABS: ABSOLUTE LYMPHOCYTES (AUTO) 1.7 10^3/uL (0.5-4.7); ABSOLUTE MONOCYTES (AUTO) 0.6 10^3/uL (0.1-1.4); ABSOLUTE NEUT (AUTO) 7.3 10^3/uL (1.7-8.2); BASOPHILS % (AUTO) 0.1 % (0-2); EOSINOPHILS % (AUTO) 0.1 % (0-6); HEMATOCRIT 35.6 % (36.0-47.0); HEMOGLOBIN 11.9 g/dL (12.0-15.5); LYMPHOCYTES % (AUTO) 17.8 % (13-45); MEAN CORPUSCULAR HEMOGLOBIN 32.7 pg (27.0-33.4); MEAN CORPUSCULAR HGB CONC 33.4 g/dL (32.0-36.0); MEAN CORPUSCULAR VOLUME 98 fl (80-97); MONOCYTES % (AUTO) 6.1 % (3-13); PLATELET COUNT 291 10^3/uL (150-450); RED BLOOD COUNT 3.63 10^6/uL (3.72-5.28); RED CELL DISTRIBUTION WIDTH 14.8 % (11.5-14.0); SEGMENTED NEUTROPHILS % (AUTO) 75.9 % (42-78); TOTAL CELLS COUNTED % (AUTO) 100 %; WHITE BLOOD COUNT 9.6 10^3/uL (4.0-10.5)
[2019-01-06 18:31] LABS: APPEARANCE,URINE CLEAR; BILIRUBIN,URINE NEGATIVE (NEGATIVE); COLOR,URINE YELLOW; GLUCOSE, URINE NEGATIVE (NEGATIVE); KETONES,URINE NEGATIVE (NEGATIVE); LEUKOCYTE ESTERASE,URINE MODERATE (NEGATIVE); NITRITE,URINE NEGATIVE (NEGATIVE); PROTEIN,URINE NEGATIVE (NEGATIVE); UROBILINOGEN,URINE NEGATIVE mg/dL (<2.0)
[2019-01-06 18:40] LABS: ALANINE AMINOTRANSFERASE 44 U/L (9-52); ALBUMIN 4.2 g/dL (3.5-5.0); ALKALINE PHOSPHATASE 79 U/L (38-126); ANION GAP 11 (5-19); ASPARTATE AMINO TRANSFERASE 33 U/L (14-36); BILIRUBIN,DIRECT 0.3 mg/dL (0.0-0.4); BILIRUBIN,TOTAL 0.5 mg/dL (0.2-1.3); BLOOD UREA NITROGEN 18 mg/dL (7-20); CALCIUM 9.7 mg/dL (8.4-10.2); CARBON DIOXIDE 26 mmol/L (22-30); CHLORIDE 106 mmol/L (98-107); GLUCOSE 92 mg/dL (75-110); LIPASE 110.2 U/L (23-300); POTASSIUM 3.5 mmol/L (3.6-5.0); TOTAL PROTEIN 7.1 g/dL (6.3-8.2)
--- NOTE | 2019-01-06 18:44 | RADIOLOGY REPORT (SQ) ---
EXAM DESCRIPTION: U/S ABDOMEN LIMITED W/O DOP COMPLETED DATE/TIME: 01/06/2019 6:34 pm REASON FOR STUDY: ruq abd pain COMPARISON: None. TECHNIQUE: Dynamic and static grayscale images acquired of the abdomen and recorded on PACS. Additio nal selected color Doppler and spectral images recorded. LIMITATIONS: None. FINDINGS: PANCREAS: Poorly seen. No mass is seen in the head of the pancreas. LIVER: No masses. Echotexture normal. LIVER VASCULATURE: Normal directional flow of the main portal vein and hepatic veins. GALLBLADDER: No stones. Normal wall thickness. No pericholecystic fluid. ULTRASOUND-DETECTED ALY'S SIGN: Negative. INTRAHEPATIC DUCTS AND COMMON DUCT: CBD and intrahepatic ducts normal caliber. No filling defects. INFERIOR VENA CAVA: Not imaged. AORTA: No aneurysm. RIGHT KIDNEY: Normal size, 9.2 cm. Normal echogenicity. No solid or suspicious masses. There is a s omewhat complex cyst measuring 15 x 21 x 14 mm. No hydronephrosis. No calcifications. PERITONEAL AND RIGHT PLEURAL SPACE: No ascites or effusions. OTHER: No other significant findings. IMPRESSION: NORMAL RIGHT UPPER QUADRANT ULTRASOUND. TECHNICAL DOCUMENTATION: JOB ID: [id number] [employer]- All Rights Reserved Reading location - IP/workstation name: [email or web address]
[2019-01-06] MEDS ORDERED: ONDANSETRON HCL INJ/PF 4 MG/2 ML SDV IV ONE (22:57)
[2019-01-06] MEDS ORDERED: MORPHINE SULFATE 10 MG/ML INJ IV ONE (22:58)
--- NOTE | 2019-01-06 23:41 | ER Document Report ---
ED GI/ - General Chief Complaint: Abdominal Pain Stated Complaint: ABDOMINAL PAIN Time Seen by Provider: 01/06/19 17:04 Primary Care Provider: SAMI BONILLA PA-C [Primary Care Provider] - Follow up as needed Mode of Arrival: Wheelchair TRAVEL OUTSIDE OF THE [place] IN LAST 30 DAYS: No - HPI Notes: 01/06/19 23:35 Patient is a 70-year-old female with a history of A. fib, hypertension, and frequent UTIs who presents to the emergency department from her primary care physician's office. Patient sought care with her PCP for right upper quadrant pain. Patient states that yesterday while walking to her mailbox, which she estimates is about 50 feet, she had a severe episode of right upper quadrant pain that "took her breath away." Patient states that after resting she felt better. Patient states that the right upper quadrant pain occurs with movement and bending down. Patient reports that she has been dealing with nausea for about 1 month. Denies vomiting or diarrhea. Patient does have chronic back pain. Patient states she received a lumbar injection this past Friday at Dr. Ibrahim's office. She denies fever. She is on blood thinners due to her A. fib. - Related Data Allergies/Adverse Reactions: fentanyl [From Duragesic] Allergy (Mild, Verified 01/06/19 15:45) felt weird, couldn't be still bee venom protein (honey bee) Allergy (Verified 01/06/19 15:45) Anaphylaxis Past Medical History - General Information source: Patient - Social History Smoking Status: Never Smoker Cigarette use (# per day): No Chew tobacco use (# tins/day): No Frequency of alcohol use: None Drug Abuse: None Lives with: Spouse/Significant other Family History: Reviewed & Not Pertinent, Other - Mom had end stage kidney disease Patient has suicidal ideation: No Patient has homicidal ideation: No - Past Medical History Cardiac Medical History: Reports: Hx Atrial Fibrillation, Hx Hypertension - ON MEDS Denies: Hx Congestive Heart Failure, Hx Coronary Artery Disease, Hx Heart Attack, Hx Heart Murmur Pulmonary Medical History: Reports: Hx Asthma - H/O WHEN YOUNGER, NO PRESENT TREATMENT, Hx Pneumonia - "YRS AGO" Denies: Hx Bronchitis, Hx COPD, Hx Tuberculosis Neurological Medical History: Denies: Hx Cerebrovascular Accident, Hx Seizures Renal/ Medical History: Reports: Hx Kidney Stones. Denies: Hx Peritoneal Dialysis GI Medical History: Reports: Hx Gastroesophageal Reflux Disease, Hx Hiatal Hernia, Hx Ulcer. Denies: Hx Hepatitis Musculoskeletal Medical History: Reports Hx Arthritis - GENERALIZED Skin Medical History: Reports None Psychiatric Medical History: Reports: None Traumatic Medical History: Reports: None Infectious Medical History: Reports: None. Denies: Hx Hepatitis Past Surgical History: Reports: Hx Appendectomy, Hx Hysterectomy, Hx Neurologic Surgery - Neck fusion, Hx Orthopedic Surgery. Denies: Hx Bowel Surgery, Hx Mastectomy, Hx Open Heart Surgery, Hx Pacemaker - Immunizations Hx Diphtheria, Pertussis, Tetanus Vaccination: Yes Hx Pneumococcal Vaccination: 09/01/13 Review of Systems - Review of Systems Constitutional: No symptoms reported EENT: No symptoms reported Cardiovascular: No symptoms reported Respiratory: No symptoms reported Gastrointestinal: See HPI Genitourinary: No symptoms reported Female Genitourinary: No symptoms reported Musculoskeletal: No symptoms reported Skin: No symptoms reported Hematologic/Lymphatic: No symptoms reported Neurological/Psychological: No symptoms reported Physical Exam - Vital signs Vitals: Temp Pulse Resp BP Pulse Ox 98.5 F 56 L 18 140/90 H 96 01/06/19 15:57 01/06/19 15:57 01/06/19 15:57 01/06/19 15:57 01/06/19 15:57 Interpretation: Bradycardic - Notes Notes: GENERAL: Well-appearing, well-nourished and in no acute distress. HEAD: Atraumatic, normocephalic. EYES: Pupils equal round and reactive to light, extraocular movements intact, sclera anicteric, conjunctiva are normal. ENT: Moist mucous membranes. NECK: Normal range of motion, supple without lymphadenopathy or JVD. LUNGS: Breath sounds clear to auscultation bilaterally and equal. No wheezes rales or rhonchi. HEART: Irregular rhythm without murmurs, rubs or gallops. ABDOMEN: Soft, tenderness to RUQ and epigastrum, hyperactive bowel sounds. No guarding, no rebound. No masses appreciated. EXTREMITIES: Normal range of motion, no pitting or edema. No clubbing or cyanosis. NEUROLOGICAL: Cranial nerves II through XII grossly intact. Normal speech, normal gait. PSYCH: Normal mood, normal affect. SKIN: Warm, Dry, normal turgor, no rashes or lesions noted. Course - Re-evaluation Re-evalutation: 01/07/19 00:40 Patient resting comfortably on stretcher no acute distress. Patient's right upper quadrant ultrasound was negative. CT ordered and results pending. Patient CT scan showed no acute findings. Patient have a fatty liver and diverticulosis. There is no evidence of diverticulitis. The gallbladder, pancreas spleen and adrenal glands are unremarkable. There is no evidence of hydronephrosis bilaterally. There is no intraperitoneal free fluid or free air. Stomach and small bowel were unremarkable. Patient does not have a appendix and has had a hysterectomy. Patient is resting comfortably on stretcher after receiving a small dose of morphine a while ago. Patient has not had any vomiting. Informed patient that her chest x-ray, CT of her abdomen, and ultrasound of her right upper quadrant were all unremarkable. She did have bacteria in her urine which we will treat with an antibiotic. Patient's right upper quadrant pain could potentially be associated with gastritis. Patient does take Protonix as well as ranitidine for this. Informed patient to continue these medications. Educated patient and has been on strict return precautions to include severe abdominal pain, vomiting, chest pain, shortness of breath or any other concerning signs or symptoms. Patient verbalized understanding. Prescription for Carafate and Pepcid. Did not give these to patient as she is already on ranitidine and Protonix. - Vital Signs Vital signs: Temp Pulse Resp BP Pulse Ox 98.4 F 78 20 146/78 H 99 01/07/19 03:00 01/07/19 03:00 01/07/19 03:00 01/07/19 03:00 01/07/19 03:00 - Laboratory Result Diagrams: 01/06/19 18:07 01/06/19 18:07 Laboratory results interpreted by me: 01/06/19 01/06/19 01/06/19 18:07 18:07 18:07 RBC 3.63 L Hgb 11.9 L Hct 35.6 L MCV 98 H RDW 14.8 H Potassium 3.5 L Urine Blood SMALL H Ur Leukocyte Esterase MODERATE H - Diagnostic Test Radiology reviewed: Reports reviewed - EKG Interpretation by Me Additional EKG results interpreted by me: 01/07/19 Patient's EKG showed atrial fibrillation with a rate of 100. Patient's QT 300, QTc 387. There is no ST elevation or ectopy. Discharge - Discharge Clinical Impression: Urinary tract infection Qualifiers: Urinary tract infection type: site unspecified Hematuria presence: without hematuria Qualified Code(s): N39.0 - Urinary tract infection, site not specified Abdominal pain Qualifiers: Abdominal location: right upper quadrant Qualified Code(s): R10.11 - Right upper quadrant pain Condition: Stable Disposition: HOME, SELF-CARE Instructions: Abdominal Pain ([facility]) Additional Instructions: Today you were seen in the emergency department for right upper quadrant pain. We did obtain a right upper abdominal ultrasound which was negative. We also obtained a chest x-ray which was negative for pneumonia or any acute process. We also obtained a CAT scan of your abdomen which did not show any acute process as well. Your urine did have bacteria which we will treat with Keflex. Keflex is an antibiotic that you will take for 1 week. We did check your cardiac enzyme which was negative. You have not had any chest pain while in the emergency department. Please return to the emergency department if worsening of symptoms to include shortness of breath, chest pain, fever, worsening of abdominal pain, or any other concerning signs or symptoms. Please your primary care physician tomorrow for a follow-up appointment. Abdominal Pain There are many causes of abdominal pain. Pain can mean a serious problem requiring surgery (such as appendicitis). It can also be an innocent problem that goes away on its own (such as a viral infection). Often, time must pass to determine the cause of pain. The physician does not feel that hospitalization is necessary, at present. Things may change within the next 24 hours. Call the doctor or come back for re-examination if any problems occur, such as: (1) Pain that becomes more severe, steady, or becomes concentrated in one specific area. Also, pain that is more severe with movement or coughing. (2) Vomiting that persists or becomes more frequent. (3) Blood in the vomitus, urine, or bowel movements. Blood in the stool may have a tarry or black appearance. (4) Shaking chills or fever greater than 100 degrees F. (5) The abdomen becomes more distended or swollen. (6) Bowel movements cease. (7) Failure to improve as expected. Prescriptions: Cephalexin Monohydrate [Keflex 500 mg Capsule] 500 mg PO BID #14 capsule Famotidine 20 mg PO BID #60 tablet Sucralfate [Carafate 1 gm Tablet] 1 gm PO QID #60 tablet Referrals: SAMI BONILLA PA-C [Primary Care Provider] - Follow up as needed
--- NOTE | 2019-01-07 00:44 | RADIOLOGY REPORT (SQ) ---
EXAM DESCRIPTION: CT ABDOMEN PELVIS WITH IV CONTRAST COMPLETED DATE/TME: 01/06/2019 22:57 CLINICAL HISTORY: 78 years, Female, epigastric pain, ruq pain CREAT 0.89 COMPARISON: 10/24/2016 TECHNIQUE: Axial CT images of the abdomen and pelvis were obtained after the administration of IV contrast. Sagittal and coronal reformats were performed. DLP 550 Images stored on PACS. All CT scanners at this facility use dose modulation, iterative reconstruction, and/or weight based dosing when appropriate to reduce radiation dose to as low as reasonably achievable (ALARA). [facility]: Dose Right [facility]: CareDose [facility]: Dose Right [facility]: Teradose 4D [facility]: [employer] LIMITATIONS: None. FINDINGS: Lung bases are clear. The liver is hypodense. The gallbladder, pancreas, spleen, and adrenal glands are unremarkable. There is no evidence of hydronephrosis bilaterally. There is a 1.8 cm right renal cyst. There is no intraperitoneal free air or fluid. There is no lymphadenopathy. There are atherosclerotic calcifications of the abdominal aorta without evidence of an aneurysm. The stomach and small bowel are unremarkable. The appendix is not uniquely identified, however there are no pericecal inflammatory changes. Diverticulosis is noted without evidence of diverticulitis. Hysterectomy. The urinary bladder is unremarkable. There is multilevel spondylosis. IMPRESSION: No acute findings. Fatty liver. Diverticulosis without evidence of diverticulitis TECHNICAL DOCUMENTATION: Quality ID # [id number]: Final reports with documentation of one or more dose reduction techniques (e.g., Automated exposure control, adjustment of the mA and/or kV according to patient size, use of iterative reconstruction technique) copyright 2011 [employer]- All Rights Reserved
[2019-01-07 03:09] VITALS: BP 146/78
--- NOTE | 2019-01-07 19:40 | EKG REPORT ---
SEVERITY:- ABNORMAL ECG - ATRIAL FIBRILLATION LVH WITH SECONDARY REPOLARIZATION ABNORMALITY : Confirmed by: Belinda Lutz MD 07-Jan-2019 19:40:05
== END 2019-01-07 03:08 | disposition home or self-care (01) ==
LOC: ER 15:42
DX: N39.0 Urinary tract infection, site not specified (principal); K21.9 Gastro-esophageal reflux disease without esophagitis; R10.11 Right upper quadrant pain; R11.0 Nausea; K76.0 Fatty (change of) liver, not elsewhere classified; K57.90 Diverticulosis of intestine, part unspecified, without perforation or abscess without bleeding; R10.811 Right upper quadrant abdominal tenderness; R10.816 Epigastric abdominal tenderness; M54.9 Dorsalgia, unspecified; G89.29 Other chronic pain; I48.91 Unspecified atrial fibrillation; Z79.01 Long term (current) use of anticoagulants; Z88.1 Allergy status to other antibiotic agents; Z91.030 Bee allergy status; Z87.892 Personal history of anaphylaxis; I10 Essential (primary) hypertension; Z90.49 Acquired absence of other specified parts of digestive tract; Z90.710 Acquired absence of both cervix and uterus; Z79.899 Other long term (current) drug therapy
CPT/HCPCS: 99284; 96374; 96375; 36415; 83690; 85025; 80053; 81001; 84484; 71046; 76705; 74177; 93005; 93010; J2270; J2405

== ENCOUNTER → 2019-03-24 | Outpatient (CLI) | payer MEDICARE, BC ==
[2019-03-24 13:05] LABS: ARTERIAL BLOOD BASE EXCESS 0.1 mmol/L; ARTERIAL BLOOD O2 SATURATION 97.3 % (94-98); ARTERIAL BLOOD PCO2 36.6 mmHg (35-45); ARTERIAL BLOOD PH 7.44 (7.35-7.45); ARTERIAL BLOOD PO2 91.5 mmHg (80-100); ARTERIAL BLOOD TOTAL CO2 25.1 mmol/L (21-25)
[2019-03-24 13:06] LABS: ARTERIAL BLOOD FIO2 ROOM AIR
--- NOTE | 2019-03-25 17:07 | Pulmonary Function Test ---
Pulmonary Function Test Date of Procedure:: 03/24/19 INDICATION:: Dyspnea Referring Provider: Dr. Gray Fitness Worker: Deandra Lim [employer] TECHNICIAN - Report Spirometry: Spirometry: pre-FVC: 2.65 L 101% pre-FEV:1 1.99 L 106% pre-FEV1/FVC % 80 predicted 75 [id number]% 1.56 L 103% Lung Volume: Total lung capacity: 3.62 L 73% Vital capacity: 2.65 L 101% Inspiratory capacity: 2.06 L FRC N2: 1.57 L 50% ERV: 0.13 L RV: 0.97 L 46% RV/TLC %: 27 predicted 43 Diffusion Capactity: DLCO: 6.8 43% DLCO/VA: 2.31 68% Impression: No obstructive ventilatory defect. Mild restrictive ventilatory defect noted. There is a severe decrease in diffusion capacity.
== END ==
LOC: RT 12:15
PROVIDERS: ATTEND Internal Medicine Clinical Cardiac Electrophysiology
DX: I12.9 Hypertensive chronic kidney disease with stage 1 through stage 4 chronic kidney disease, or unspecified chronic kidney disease (principal); R06.02 Shortness of breath; N18.2 Chronic kidney disease, stage 2 (mild); I48.91 Unspecified atrial fibrillation
CPT/HCPCS: 36600; 82803; 94010; 94727; 94729; 94761

== ENCOUNTER 2019-06-24 00:30 | Inpatient (IN) | payer MEDICARE, BC ==
[2019-06-24] MEDS ORDERED: ONDANSETRON HCL INJ/PF 4 MG/2 ML SDV IV ONE (00:51)
--- NOTE | 2019-06-24 00:52 | ER Document Report ---
ED General - General Chief Complaint: Fever Stated Complaint: FEVER,ALTERED MENTAL STATUS Time Seen by Provider: 06/24/19 00:43 Primary Care Provider: SAMI BONILLA PA-C [Primary Care Provider] - Follow up as needed Mode of Arrival: Medic Information source: Patient, Emergency Med Personnel TRAVEL OUTSIDE OF THE [place] IN LAST 30 DAYS: No - HPI Notes: Patient is a 79-year-old female history of previous renal insufficiency and hy ponatremia and atrial fibrillation comes in with report of a 3-day history of fever with cough and congestion and some diarrhea and vomiting. EMS picked up the patient and found a axillary temp of 102.5 and gave 975 of Tylenol and lactated Ringer's bolus of 1 L. Patient initially was confused and disoriented with difficulty talking, but when she arrived she was talking and more interactive after rehydration and Tylenol. Patient's states that the patient has had dysuria for the last 3 days, and has a history of recurrent UTIs. Patient normally drives, but she was disoriented and altered at home with her fever. After further time and rehydration and her Tylenol, she was alert and oriented to person place time and president per her baseline. No focal unilateral motor or sensory deficit. No exposure to anyone who is had the flu. No skin breakdown. - Related Data Allergies/Adverse Reactions: fentanyl [From Duragesic] Allergy (Mild, Verified 01/06/19 15:45) felt weird, couldn't be still bee venom protein (honey bee) Allergy (Verified 01/06/19 15:45) Anaphylaxis Home Medications: Metoprolol, mag, lisinopril, atorvastatin, amlodipine, pantoprazole, pradaxa, ranitidine, seraline Past Medical History - General Information source: Patient - Social History Smoking Status: Never Smoker Frequency of alcohol use: None Drug Abuse: None Lives with: Family Family History: Reviewed & Not Pertinent, Other - Mom had end stage kidney disease Patient has suicidal ideation: No Patient has homicidal ideation: No - Past Medical History Cardiac Medical History: Reports: Hx Atrial Fibrillation, Hx Hypertension - ON M EDS Denies: Hx Congestive Heart Failure, Hx Coronary Artery Disease, Hx Heart Attack, Hx Heart Murmur Pulmonary Medical History: Reports: Hx Asthma - H/O WHEN YOUNGER, NO PRESENT TREATMENT, Hx Pneumonia - "YRS AGO" Denies: Hx Bronchitis, Hx COPD, Hx Tuberculosis Neurological Medical History: Denies: Hx Cerebrovascular Accident, Hx Seizures Renal/ Medical History: Reports: Hx Kidney Stones. Denies: Hx Peritoneal Dialysis GI Medical History: Reports: Hx Gastroesophageal Reflux Disease, Hx Hiatal Hernia, Hx Ulcer. Denies: Hx Hepatitis Musculoskeletal Medical History: Reports Hx Arthritis - GENERALIZED Infectious Medical History: Denies: Hx Hepatitis Past Surgical History: Reports: Hx Appendectomy, Hx Hysterectomy, Hx Neurologic Surgery - Neck fusion, Hx Orthopedic Surgery. Denies: Hx Bowel Surgery, Hx Mastectomy, Hx Open Heart Surgery, Hx Pacemaker - Immunizations Hx Diphtheria, Pertussis, Tetanus Vaccination: Yes Hx Pneumococcal Vaccination: 09/01/13 Review of Systems - Review of Systems -: Yes All other systems reviewed and negative Physical Exam - Vital signs Vitals: Resp 19 06/24/19 00:42 - Notes Notes: PHYSICAL EXAMINATION: GENERAL: well-nourished and in no acute distress. Somewhat diaphoretic. HEAD: Atraumatic, normocephalic. EYES: Pupils equal round and reactive to light, extraocular movements intact, conjunctiva are normal. ENT: Nares patent, oropharynx clear without exudates. Moist mucous membranes. NECK: Normal range of motion, supple without lymphadenopathy LUNGS: Breath sounds clear to auscultation bilaterally and equal. No wheezes rales or rhonchi. HEART: Regular rate and rhythm with 1/6 SELENA over apex. ABDOMEN: Soft, nontender, nondistended abdomen. No guarding, no rebound. No masses appreciated. Female : deferred Musculoskeletal: Normal range of motion, no pitting or edema. No cyanosis. No CVA tenderness. NEUROLOGICAL: Cranial nerves grossly intact. Normal speech on my exam. normal sensory, motor exams. The patient is alert and oriented to person place and year and president. PSYCH: Normal mood, normal affect. SKIN: Warm, Dry, normal turgor, no rashes or lesions noted. Course - Re-evaluation Re-evalutation: 06/24/19 04:51 Patient had blood cultures and a urine culture prior to receiving IV Rocephin for UTI. With time and rehydration, the patient became more interactive and alert and was acting more like her normal self according to her . There is no clinical suggestion for CVA. Repeat abdominal exam was nontender. Potassium was low at 2.9 and the patient was given a second liter of fluids with normal saline with 20 of KCl at 500 cc an hour. No evidence for pneumonia or congestive heart failure. 06/24/19 04:53 Discussion was undertaken with the patient and her and they were in agreement with the patient being admitted for further evaluation and management and care. Discussion was undertaken with the hospitalist Dr. Alonzo and he agreed to admit the patient. 06/24/19 04:54 06/24/19 04:54 - Vital Signs Vital signs: Temp Pulse Resp BP Pulse Ox 97.9 F 79 18 105/54 L 94 06/24/19 02:00 06/24/19 00:49 06/24/19 04:00 06/24/19 03:30 06/24/19 00:51 - Laboratory Result Diagrams: 06/24/19 00:55 06/24/19 00:55 Laboratory results interpreted by me: 06/24/19 06/24/19 06/24/19 00:55 00:55 00:55 RBC 3.54 L Hgb 11.5 L Hct 34.1 L RDW 14.3 H Seg Neuts % (Manual) 83 H Band Neutrophils % 10 H Lymphocytes % (Manual) 2 L Metamyelocytes % 2 H Abs Lymphs (Manual) 0.2 L VBG pH 7.43 H Potassium 2.9 L* BUN 25 H Est GFR ( Amer) 55 L Est GFR (MDRD) Non-Af 45 L Glucose 163 H Lactic Acid Total Bilirubin 1.5 H Direct Bilirubin 0.6 H Urine Protein Urine Ketones Urine Blood Urine Nitrite Ur Leukocyte Esterase 06/24/19 06/24/19 00:55 01:30 RBC Hgb Hct RDW Seg Neuts % (Manual) Band Neutrophils % Lymphocytes % (Manual) Metamyelocytes % Abs Lymphs (Manual) VBG pH Potassium BUN Est GFR ( Amer) Est GFR (MDRD) Non-Af Glucose Lactic Acid 2.2 H Total Bilirubin Direct Bilirubin Urine Protein 30 H Urine Ketones TRACE H Urine Blood LARGE H Urine Nitrite POSITIVE H Ur Leukocyte Esterase MODERATE H - EKG Interpretation by Me EKG shows normal: Sinus rhythm Additional EKG results interpreted by me: 06/24/19 00:52 EKG as interpreted by me showed normal sinus rhythm heart rate of 79 with multiple PVCs. There was no gross evidence for acute WA or ischemia noted. Critical Care Note - Critical Care Note Total time excluding time spent on procedures (mins): 43 Discharge - Discharge Clinical Impression: Dehydration, Hypokalemia Urinary tract infection Qualifiers: Urinary tract infection type: acute cystitis Hematuria presence: without hematuria Qualified Code(s): N30.00 - Acute cystitis without hematuria Sepsis Qualifiers: Sepsis type: sepsis due to unspecified organism Sepsis acute organ dysfunction status: without acute organ dysfunction Qualified Code(s): A41.9 - Sepsis, unspecified organism AMS (altered mental status) Qualifiers: Altered mental status type: delirium Qualified Code(s): R41.0 - Disorientation, unspecified Fever Qualifiers: Fever type: due to other condition Qualified Code(s): R50.81 - Fever presenting with conditions classified elsewhere Condition: Stable Disposition: ADMITTED INPATIENT Admitting Provider: Clinton (Hospitalist) Unit Admitted: IMCU Referrals: SAMI BONILLA PA-C [Primary Care Provider] - Follow up as needed
[2019-06-24 01:17] LABS: VENOUS BLOOD BASE EXCESS -0.1 mmol/L; VENOUS BLOOD HCO3 23.6 mmol/L (20-32); VENOUS BLOOD PCO2 36.1 mmHg (35-63); VENOUS BLOOD PH 7.43 (7.30-7.42)
[2019-06-24 01:34] LABS: HEMATOCRIT 34.1 % (36.0-47.0); HEMOGLOBIN 11.5 g/dL (12.0-15.5); MEAN CORPUSCULAR HEMOGLOBIN 32.4 pg (27.0-33.4); MEAN CORPUSCULAR HGB CONC 33.6 g/dL (32.0-36.0); MEAN CORPUSCULAR VOLUME 97 fl (80-97); PLATELET COUNT 188 10^3/uL (150-450); RED BLOOD COUNT 3.54 10^6/uL (3.72-5.28); RED CELL DISTRIBUTION WIDTH 14.3 % (11.5-14.0); WHITE BLOOD COUNT 8.2 10^3/uL (4.0-10.5)
--- NOTE | 2019-06-24 01:37 | RADIOLOGY REPORT (SQ) ---
EXAM DESCRIPTION: XR CHEST 1 VIEW COMPLETED DATE/TME: 06/24/2019 00:45 CLINICAL HISTORY: 79 years, Female, FEVER, COUGH COMPARISON: 01/06/2019 chest NUMBER OF VIEWS: 1 TECHNIQUE: Portable chest LIMITATIONS: None. FINDINGS: Heart size is normal. Osteopenia. Lungs clear. No pneumothorax IMPRESSION: No acute cardiopulmonary process copyright 2010 [employer]- All Rights Reserved
[2019-06-24 01:43] LABS: ALBUMIN 3.5 g/dL (3.5-5.0); ALKALINE PHOSPHATASE 98 U/L (38-126); ANION GAP 13 (5-19); ASPARTATE AMINO TRANSFERASE 24 U/L (14-36); BILIRUBIN,DIRECT 0.6 mg/dL (0.0-0.4); BILIRUBIN,TOTAL 1.5 mg/dL (0.2-1.3); BLOOD UREA NITROGEN 25 mg/dL (7-20); CALCIUM 9.1 mg/dL (8.4-10.2); CARBON DIOXIDE 23 mmol/L (22-30); CHLORIDE 104 mmol/L (98-107); GLUCOSE 163 mg/dL (75-110); TOTAL PROTEIN 6.3 g/dL (6.3-8.2)
[2019-06-24 01:51] LABS: ABSOLUTE LYMPHOCYTES# (MANUAL) 0.2 10^3/uL (0.5-4.7); ABSOLUTE MONOCYTES # (MANUAL) 0.2 10^3/uL (0.1-1.4); BAND NEUTROPHILS % (MANUAL) 10 % (3-5); BASOPHILS % (MANUAL) 0 % (0-2); EOSINOPHILS % (MANUAL) 0 % (0-6); LYMPHOCYTES % (MANUAL) 2 % (13-45); METAMYELOCYTES % (MANUAL) 2 % (0); MONOCYTES % (MANUAL) 3 % (3-13); SEGMENTED NEUTROPHILS % (MAN) 83 % (42-78); TOTAL CELLS COUNTED 100
[2019-06-24 01:52] LABS: ANISOCYTOSIS SLIGHT; PLATELET COMMENT ADEQUATE; POLYCHROMASIA SLIGHT
[2019-06-24 01:54] LABS: A TYPE INFLUENZA AG NEGATIVE (NEGATIVE); B INFLUENZA AG NEGATIVE (NEGATIVE)
[2019-06-24 01:55] LABS: APPEARANCE,URINE CLOUDY; BILIRUBIN,URINE NEGATIVE (NEGATIVE); COLOR,URINE YELLOW; GLUCOSE, URINE NEGATIVE (NEGATIVE); KETONES,URINE TRACE mg/dL (NEGATIVE); LEUKOCYTE ESTERASE,URINE MODERATE (NEGATIVE); NITRITE,URINE POSITIVE (NEGATIVE); PROTEIN,URINE 30 mg/dL (NEGATIVE); UROBILINOGEN,URINE NEGATIVE mg/dL (<2.0)
[2019-06-24 02:05] LABS: POTASSIUM 2.9 mmol/L (3.6-5.0)
[2019-06-24] MEDS ORDERED: POTASSI CL 20 MEQ/NS 1L 1,000 ML IV ONE (02:19)
[2019-06-24] MEDS ORDERED: CEFTRIAXONE 1 GM/D5W RTU 1 GM/50 ML RTUPB IV ONE (02:30)
[2019-06-24] MEDS ORDERED: NORMAL SALINE 1000 ML 1,000 ML IV ONE (06:26)
[2019-06-24] MEDS ORDERED: IPRATROPIUM/ALBUTEROL 0.5-2.5 MG/3 ML AMPUL NEB PRN (06:26)
[2019-06-24] MEDS ORDERED: MAG HYDROX/AL HYDROX/SIMETH SUSP 30 ML UDCUP PO PRN (06:26)
[2019-06-24] MEDS ORDERED: ACETAMINOPHEN 325 MG TABLET PO PRN (06:26)
[2019-06-24] MEDS ORDERED: DEXTROSE 5%-1/2 NORMAL SALINE 1,000 ML IV SCH (06:30)
--- NOTE | 2019-06-24 06:42 | PDOC H&P ---
History of Present Illness Admission Date/PCP: 06/24/19 05:10 SAMI BONILLA PA-C Patient complains of: Confusion History of Present Illness: EDEN TRAORE is a 79 year old female whose history is obtained by the record as she is confused includes atrial fibrillation on Xarelto, hypertension, dyslipidemia, GERD, nephrolithiasis and recurrent UTI. Patient presents with 3 days of fever developing confusion prompting an evaluation in the emergency room. She was discovered by EMS to have temperature of 102.5 and confusion, she received lactated Ringer's, Tylenol and brought to the emergency room for evaluation where she is found to have persistent confusion, hypotension, bandemia and pyuria. She started on empiric antibiotics and referred to the hospitalist for admission. Patient is awake and alert oriented to self from a normal baseline. Past Medical History Cardiac Medical History: Reports: Atrial Fibrillation, Hypertension - ON MEDS Denies: Congestive Heart Failure, Coronary Artery Disease, Myocardial Infa rction, Heart Murmur Pulmonary Medical History: Reports: Asthma - H/O WHEN YOUNGER, NO PRESENT TREATMENT, Pneumonia - "YRS AGO" Denies: Bronchitis, Chronic Obstructive Pulmonary Disease (COPD), Tuberculosis Neurological Medical History: Denies: Seizures GI Medical History: Reports: Gastroesophageal Reflux Disease, Hiatal Hernia Denies: Hepatitis Musculoskeltal Medical History: Reports: Arthritis - GENERALIZED Hematology: Denies: Anemia, Hemophilia, Sickle Cell Disease Past Surgical History Past Surgical History: Reports: Appendectomy, Hysterectomy, Orthopedic Surgery Denies: Amputation, Mastectomy, Pacemaker Social History Information Source: Emergency Med Personnel, [facility] Records Lives with: Family Smoking Status: Never Smoker Frequency of Alcohol Use: None Hx Recreational Drug Use: No Hx Prescription Drug Abuse: No - Advance Directive Resuscitation Status: Full Code Family History Family History: Hypertension, Other - Mom had end stage kidney disease Parental Family History Reviewed: Yes Children Family History Reviewed: Yes Sibling(s) Family History Reviewed.: Yes Medication/Allergy Home Medications: Lisinopril 40 mg PO DAILY 06/26/17 Magnesium Oxide 400 mg PO DAILY 06/26/17 Metoprolol Succinate [Toprol Xl 50 mg Tab.sr] 50 mg PO BID 06/26/17 Pantoprazole Sodium 40 mg PO DAILY 06/26/17 Amlodipine Besylate [Norvasc 2.5 mg Tablet] 2.5 mg PO DAILY 10/13/18 Dabigatran Etexilate Mesylate [Pradaxa 150 mg Capsule] 150 mg PO BID 10/13/18 Ranitidine HCl 150 mg PO BID 10/13/18 Sertraline HCl 25 mg PO DAILY 10/13/18 Atorvastatin Calcium [Lipitor 80 mg Tablet] 80 mg PO DAILY 06/24/19 Allergies/Adverse Reactions: fentanyl [From Duragesic] Allergy (Mild, Verified 01/06/19 15:45) felt weird, couldn't be still bee venom protein (honey bee) Allergy (Verified 01/06/19 15:45) Anaphylaxis Review of Systems ROS unobtainable: Due to mental status Physical Exam Vital Signs: Temp Pulse Resp BP Pulse Ox 98.1 F 79 21 H 119/67 94 06/24/19 06:00 06/24/19 00:49 06/24/19 06:00 06/24/19 06:00 06/24/19 00:51 Intake & Output 06/22/19 06/23/19 06/24/19 11:59 11:59 11:59 Intake Total 1050 Balance 1050 Weight 58.967 kg General appearance: PRESENT: cooperative, mild distress, well-developed, well- nourished Head exam: PRESENT: atraumatic, normocephalic Eye exam: PRESENT: conjunctiva pink, EOMI, PERRLA. ABSENT: scleral icterus Ear exam: PRESENT: normal external ear exam Mouth exam: PRESENT: dry mucosa. ABSENT: laceration, moist Neck exam: ABSENT: carotid bruit, JVD, lymphadenopathy, thyromegaly Respiratory exam: PRESENT: clear to auscultation samia. ABSENT: rales, rhonchi, wheezes Cardiovascular exam: PRESENT: RRR. ABSENT: diastolic murmur, rubs, systolic mu rmur Pulses: PRESENT: normal dorsalis pedis pul Vascular exam: PRESENT: normal capillary refill GI/Abdominal exam: PRESENT: normal bowel sounds, soft. ABSENT: distended, guarding, mass, organolmegaly, rebound, tenderness Rectal exam: PRESENT: deferred Extremities exam: PRESENT: full ROM. ABSENT: calf tenderness, clubbing, pedal edema Neurological exam: PRESENT: alert, altered, awake, oriented to person, CN II-XII grossly intact. ABSENT: oriented to place, oriented to time Psychiatric exam: PRESENT: appropriate affect, normal mood. ABSENT: homicidal ideation, suicidal ideation Skin exam: PRESENT: dry, intact, warm. ABSENT: cyanosis, rash Results Laboratory Results: 06/24/19 00:55 06/24/19 00:55 06/24/19 06/24/19 06/24/19 00:55 00:55 00:55 WBC 8.2 RBC 3.54 L Hgb 11.5 L Hct 34.1 L MCV 97 MCH 32.4 MCHC 33.6 RDW 14.3 H Plt Count 188 Seg Neutrophils % Not Reportable VBG pH 7.43 H VBG pCO2 36.1 VBG HCO3 23.6 VBG Base Excess -0.1 Sodium 140.2 Potassium 2.9 L* Chloride 104 Carbon Dioxide 23 Anion Gap 13 BUN 25 H Creatinine 1.16 Est GFR ( Amer) 55 L Glucose 163 H Lactic Acid Calcium 9.1 Magnesium 1.6 Total Bilirubin 1.5 H AST 24 Alkaline Phosphatase 98 Total Protein 6.3 Albumin 3.5 Lipase Urine Color Urine Appearance Urine pH Ur Specific Randle Urine Protein Urine Glucose (UA) Urine Ketones Urine Blood Urine Nitrite Ur Leukocyte Esterase Urine WBC (Auto) Urine RBC (Auto) 06/24/19 06/24/19 06/24/19 00:55 00:55 01:30 WBC RBC Hgb Hct MCV MCH MCHC RDW Plt Count Seg Neutrophils % VBG pH VBG pCO2 VBG HCO3 VBG Base Excess Sodium Potassium Chloride Carbon Dioxide Anion Gap BUN Creatinine Est GFR ( Amer) Glucose Lactic Acid 2.2 H Calcium Magnesium Total Bilirubin AST Alkaline Phosphatase Total Protein Albumin Lipase 51.4 Urine Color YELLOW Urine Appearance CLOUDY Urine pH 5.0 Ur Specific Randle 1.010 Urine Protein 30 H Urine Glucose (UA) NEGATIVE Urine Ketones TRACE H Urine Blood LARGE H Urine Nitrite POSITIVE H Ur Leukocyte Esterase MODERATE H Urine WBC (Auto) 120 Urine RBC (Auto) 6 06/24/19 06/24/19 04:00 05:20 WBC RBC Hgb Hct MCV MCH MCHC RDW Plt Count Seg Neutrophils % VBG pH VBG pCO2 VBG HCO3 VBG Base Excess Sodium Potassium Chloride Carbon Dioxide Anion Gap BUN Creatinine Est GFR ( Amer) Glucose Lactic Acid 1.8 1.9 Calcium Magnesium Total Bilirubin AST Alkaline Phosphatase Total Protein Albumin Lipase Urine Color Urine Appearance Urine pH Ur Specific Randle Urine Protein Urine Glucose (UA) Urine Ketones Urine Blood Urine Nitrite Ur Leukocyte Esterase Urine WBC (Auto) Urine RBC (Auto) 06/24/19 00:55 Troponin I 0.025 Impressions: Chest X-Ray 06/24/19 00:45 IMPRESSION: No acute cardiopulmonary process copyright 2011 [employer]- All Rights Reserved Assessment and Plan - Diagnosis (1) Urinary tract infection Qualifiers: Urinary tract infection type: acute cystitis Hematuria presence: without hematuria Qualified Code(s): N30.00 - Acute cystitis without hematuria Is this a current diagnosis for this admission?: Yes Plan: Complicated by sepsis, nephrolithiasis and encephalopathy. Empiric Rocephin and vancomycin. 3 L IV fluid challenge follow-up CT stone protocol, CBC blood and urine culture (2) Sepsis Is this a current diagnosis for this admission?: Yes Plan: Secondary to #1, complicated by nephrolithiasis, Rocephin, vancomycin, IV fluid challenge, follow-up blood and urine culture (3) Encephalopathy Is this a current diagnosis for this admission?: Yes Plan: Secondary to #1, - Time Time Spent with patient: 25-34 minutes - Inpatient Certification Medical Necessity: Need Close Monitoring Due to Risk of Patient Decompensation
[2019-06-24] MEDS ORDERED: VANCOMYCIN HCL 0 MG in DEXTROSE 5%-WATER 250 ML IV NR (06:45)
[2019-06-24] MEDS ORDERED: VANCOMYCIN HCL 1,250 MG in DEXTROSE 5%-WATER 250 ML IV ONE (08:00)
--- NOTE | 2019-06-24 08:38 | RADIOLOGY REPORT (SQ) ---
EXAM DESCRIPTION: CT ABD/PELVIS NO ORAL OR IV COMPLETED DATE/TIME: 06/24/2019 8:03 am REASON FOR STUDY: urosepsis c nephrolith hx COMPARISON: 2010 TECHNIQUE: CT scan of the abdomen and pelvis performed without intravenous or oral contrast. Images reviewed with lung, soft tissue, and bone windows. Reconstructed coronal and sagittal MPR images revi ewed. All images stored on PACS. All CT scanners at this facility use dose modulation, iterative reconstruction, and/or weight based d osing when appropriate to reduce radiation dose to as low as reasonably achievable (ALARA). [facility]: Dose Right [facility]: CareDose [facility]: Dose Right [facility]: Teradose 4D [facility]: [employer] RADIATION DOSE: mGy. LIMITATIONS: None. FINDINGS: LOWER CHEST: No significant findings. No nodules or infiltrates. NON-CONTRASTED LIVER, SPLEEN, ADRENALS: Evaluation limited by lack of IV contrast. No identified sign ificant masses. PANCREAS: No masses. No peripancreatic inflammatory changes. GALLBLADDER: No identified stones by CT criteria. No inflammatory changes to suggest cholecystitis. RIGHT KIDNEY AND URETER: No suspicious masses. Assessment limited by lack of IV contrast. No signif icant calcifications. No hydronephrosis or hydroureter. LEFT KIDNEY AND URETER: No suspicious masses. Assessment limited by lack of IV contrast. No signifi cant calcifications. Mild dilatation of the UPJ. Mild perinephric stranding. AORTA AND RETROPERITONEUM: No aneurysm. No retroperitoneal masses or adenopathy. BOWEL AND PERITONEAL CAVITY: No obvious masses or inflammatory changes. No free fluid. APPENDIX: Not visualized. PELVIS, BLADDER, AND ABDOMINAL WALL:No abnormal masses. No free fluid. Bladder normal. BONES: Nothing acute. OTHER: No other significant finding. IMPRESSION: Mild dilatation of the left UPJ without visualized ureteral or bladder calculi. Suspect recent stone passage. Correlate with urinalysis. COMMENT: Quality ID # [id number]: Final reports with documentation of one or more dose reduction techniques (e.g., Automated exposure control, adjustment of the mA and/or kV according to patient size, use of iterative reconstruction technique) TECHNICAL DOCUMENTATION: JOB ID: [id number] [employer]- All Rights Reserved Reading location - IP/workstation name: [email or web address]
[2019-06-24] MEDS ORDERED: METOPROLOL SUCCINATE 50 MG TAB.SR.24H PO SCH (10:00)
[2019-06-24] MEDS: DOCUSATE SODIUM 100 MG CAPSULE PO SCH ×2 (11:06→18:11)
[2019-06-24] MEDS: MAGNESIUM OXIDE 400 MG TABLET PO SCH (11:07)
[2019-06-24] MEDS: METOPROLOL SUCCINATE 50 MG TAB.SR.24H PO SCH ×2 (11:08→22:00)
[2019-06-24] MEDS: SERTRALINE HCL 50 MG TABLET PO SCH (11:08)
[2019-06-24] MEDS: DABIGATRAN ETEXILATE 150 MG CAPSULE PO SCH ×2 (11:10→18:23)
[2019-06-24] MEDS: NORMAL SALINE 1000 ML 1,000 ML IV PRN (14:06)
--- NOTE | 2019-06-24 20:17 | EKG REPORT ---
SEVERITY:- ABNORMAL ECG - SINUS RHYTHM LVH WITH SECONDARY REPOLARIZATION ABNORMALITY : Confirmed by: Belinda Lutz MD 24-Jun-2019 20:16:36
[2019-06-24] MEDS: CEFTRIAXONE 1 GM/D5W RTU 1 GM/50 ML RTUPB IV SCH (22:00)
[2019-06-25 05:38] LABS: ABSOLUTE EOSINOPHILS # (AUTO) 0.1 10^3/uL (0.0-0.6); ABSOLUTE MONOCYTES (AUTO) 0.8 10^3/uL (0.1-1.4); ABSOLUTE NEUT (AUTO) 11.9 10^3/uL (1.7-8.2); BASOPHILS % (AUTO) 0.2 % (0-2); EOSINOPHILS % (AUTO) 0.5 % (0-6); HEMATOCRIT 28.7 % (36.0-47.0); HEMOGLOBIN 9.6 g/dL (12.0-15.5); LYMPHOCYTES % (AUTO) 7.2 % (13-45); MEAN CORPUSCULAR HEMOGLOBIN 32.3 pg (27.0-33.4); MEAN CORPUSCULAR HGB CONC 33.6 g/dL (32.0-36.0); MEAN CORPUSCULAR VOLUME 96 fl (80-97); MONOCYTES % (AUTO) 5.7 % (3-13); PLATELET COUNT 164 10^3/uL (150-450); RED BLOOD COUNT 2.98 10^6/uL (3.72-5.28); RED CELL DISTRIBUTION WIDTH 14.2 % (11.5-14.0); SEGMENTED NEUTROPHILS % (AUTO) 86.4 % (42-78); TOTAL CELLS COUNTED % (AUTO) 100 %; WHITE BLOOD COUNT 13.8 10^3/uL (4.0-10.5)
[2019-06-25 06:01] LABS: ANION GAP 8 (5-19); BLOOD UREA NITROGEN 17 mg/dL (7-20); CALCIUM 8.5 mg/dL (8.4-10.2); CARBON DIOXIDE 23 mmol/L (22-30); CHLORIDE 109 mmol/L (98-107); GLUCOSE 87 mg/dL (75-110); POTASSIUM 3.4 mmol/L (3.6-5.0)
[2019-06-25] MEDS ORDERED: VANCOMYCIN HCL 750 MG in DEXTROSE 5%-WATER 250 ML IV SCH (08:00)
[2019-06-25] MEDS ORDERED: POTASSIUM CHLORIDE 10 MEQ CAPSULE.ER PO ONE (09:00)
[2019-06-25] MEDS: DOCUSATE SODIUM 100 MG CAPSULE PO SCH ×2 (09:46→18:05)
[2019-06-25] MEDS: MAGNESIUM OXIDE 400 MG TABLET PO SCH (09:46)
[2019-06-25] MEDS: SERTRALINE HCL 50 MG TABLET PO SCH (09:46)
[2019-06-25] MEDS: METOPROLOL SUCCINATE 50 MG TAB.SR.24H PO SCH ×2 (09:46→21:35)
[2019-06-25] MEDS: DABIGATRAN ETEXILATE 150 MG CAPSULE PO SCH ×2 (09:47→18:05)
[2019-06-25] MEDS: NORMAL SALINE 1000 ML 1,000 ML IV PRN (10:01)
[2019-06-25] MEDS ORDERED: INFLUENZA QUAD (6MOS+) 2019-20 VAC 0.5 ML SYR IM ONE (11:21)
--- NOTE | 2019-06-25 11:42 | PDOC PROGRESS REPORT ---
Subjective Progress Note for:: 06/25/19 Subjective:: This is a 79-year-old female with a past medical history of atrial fibrillation on Xarelto, hypertension, dyslipidemia, GERD, nephrolithiasis and recurrent UTI. She was admitted for acute encephalopathy neuropathy secondary to sepsis from acute pyelonephritis. She was started on IV antibiotics. No acute event overnight. Patient appears more coherent and conversant today. She is oriented to person, place and knows that it is 2019. She denies acute complaints. No fever, chest pain or shortness of breath. Reason For Visit: UTI W SEPSIS AMS Physical Exam Vital Signs: Temp Pulse Resp BP Pulse Ox 99.4 F 70 16 118/55 L 97 06/25/19 08:45 06/25/19 11:06 06/25/19 11:06 06/25/19 08:45 06/25/19 11:06 Intake & Output 06/24/19 06/25/19 06/26/19 06:59 06:59 06:59 Intake Total 1050 1777 1246 Balance 1050 1777 1246 Weight 130 lb 133 lb 2.547 oz General appearance: PRESENT: no acute distress, well-developed, well-nourished Head exam: PRESENT: atraumatic, normocephalic Eye exam: PRESENT: conjunctiva pink, EOMI, PERRLA. ABSENT: scleral icterus Ear exam: PRESENT: normal external ear exam Mouth exam: PRESENT: moist, tongue midline Neck exam: ABSENT: carotid bruit, JVD, lymphadenopathy, thyromegaly Respiratory exam: PRESENT: clear to auscultation samia. ABSENT: rales, rhonchi, wheezes Cardiovascular exam: PRESENT: RRR. ABSENT: diastolic murmur, rubs, systolic murmur Pulses: PRESENT: normal dorsalis pedis pul GI/Abdominal exam: PRESENT: normal bowel sounds, soft. ABSENT: distended, guarding, mass, organolmegaly, rebound, tenderness Rectal exam: PRESENT: deferred Neurological exam: PRESENT: alert, awake, oriented to person, oriented to place, oriented to time, CN II-XII grossly intact. ABSENT: motor sensory deficit Results Laboratory Results: 06/25/19 04:32 06/25/19 04:32 06/24/19 06/24/19 06/25/19 00:55 10:51 04:32 WBC 13.8 H RBC 2.98 L Hgb 9.6 L Hct 28.7 L MCV 96 MCH 32.3 MCHC 33.6 RDW 14.2 H Plt Count 164 Seg Neutrophils % 86.4 H Sodium Potassium 3.6 Chloride Carbon Dioxide Anion Gap BUN Creatinine Est GFR ( Amer) Glucose Calcium TSH 3.71 06/25/19 04:32 WBC RBC Hgb Hct MCV MCH MCHC RDW Plt Count Seg Neutrophils % Sodium 140.2 Potassium 3.4 L Chloride 109 H Carbon Dioxide 23 Anion Gap 8 BUN 17 Creatinine 0.90 Est GFR ( Amer) > 60 Glucose 87 Calcium 8.5 TSH 06/24/19 01:30 Catheterized Urine Urine Culture - Final Escherichia Coli 06/24/19 00:55 Troponin I 0.025 Impressions: Abdomen/Pelvis CT 06/24/19 00:00 IMPRESSION: Mild dilatation of the left UPJ without visualized ureteral or bladder calculi. Suspect recent stone passage. Correlate with urinalysis. Chest X-Ray 06/24/19 00:45 IMPRESSION: No acute cardiopulmonary process copyright 2011 [employer]- All Rights Reserved Assessment and Plan - Diagnosis (1) Acute encephalopathy Is this a current diagnosis for this admission?: Yes Plan: Improving. Secondary to sepsis. (2) Sepsis Qualifiers: Sepsis type: sepsis due to unspecified organism Sepsis acute organ dysfunction status: without acute organ dysfunction Qualified Code(s): A41.9 - Sepsis, unspecified organism Is this a current diagnosis for this admission?: Yes Plan: Secondary to acute pyelonephritis. Urine culture grew pansensitive E. coli. Blood cultures growing gram-negative rods 1/2 bottles. Continue Rocephin. Disc ontinue vancomycin. (3) Acute pyelonephritis Is this a current diagnosis for this admission?: Yes Plan: As per #2. (4) Paroxysmal atrial fibrillation Is this a current diagnosis for this admission?: Yes Plan: Continue dabigatran. Resume Tikosyn and metoprolol. - Time Time Spent with patient: 25-34 minutes
[2019-06-25] MEDS ORDERED: (PENDING PHARMACY ID) (Dofetilide [Tikosyn] 250 MCG) PO SCH (18:00)
[2019-06-25] MEDS: DOFETILIDE 125 MCG CAPSULE PO SCH (18:05)
[2019-06-25] MEDS: CEFTRIAXONE 1 GM/D5W RTU 1 GM/50 ML RTUPB IV SCH (21:34)
[2019-06-26 09:40] LABS: ABSOLUTE EOSINOPHILS # (AUTO) 0.1 10^3/uL (0.0-0.6); ABSOLUTE LYMPHOCYTES (AUTO) 0.9 10^3/uL (0.5-4.7); ABSOLUTE MONOCYTES (AUTO) 0.6 10^3/uL (0.1-1.4); ABSOLUTE NEUT (AUTO) 9.3 10^3/uL (1.7-8.2); BASOPHILS % (AUTO) 0.4 % (0-2); EOSINOPHILS % (AUTO) 0.7 % (0-6); HEMOGLOBIN 11.2 g/dL (12.0-15.5); LYMPHOCYTES % (AUTO) 8.4 % (13-45); MEAN CORPUSCULAR HEMOGLOBIN 32.4 pg (27.0-33.4); MEAN CORPUSCULAR VOLUME 95 fl (80-97); MONOCYTES % (AUTO) 5.4 % (3-13); PLATELET COUNT 190 10^3/uL (150-450); RED BLOOD COUNT 3.46 10^6/uL (3.72-5.28); RED CELL DISTRIBUTION WIDTH 14.4 % (11.5-14.0); SEGMENTED NEUTROPHILS % (AUTO) 85.1 % (42-78); TOTAL CELLS COUNTED % (AUTO) 100 %; WHITE BLOOD COUNT 10.9 10^3/uL (4.0-10.5)
[2019-06-26] MEDS: ATORVASTATIN CALCIUM 80 MG TABLET PO SCH (09:47)
[2019-06-26] MEDS: DABIGATRAN ETEXILATE 150 MG CAPSULE PO SCH ×2 (09:47→17:17)
[2019-06-26] MEDS: METOPROLOL SUCCINATE 50 MG TAB.SR.24H PO SCH ×2 (09:47→21:28)
[2019-06-26] MEDS: MAGNESIUM OXIDE 400 MG TABLET PO SCH (09:47)
[2019-06-26] MEDS: SERTRALINE HCL 50 MG TABLET PO SCH (09:47)
[2019-06-26] MEDS: PANTOPRAZOLE SODIUM 40 MG TABLET.DR PO SCH (09:47)
[2019-06-26] MEDS: DOCUSATE SODIUM 100 MG CAPSULE PO SCH ×2 (09:47→17:17)
[2019-06-26] MEDS: DOFETILIDE 125 MCG CAPSULE PO SCH ×2 (09:47→17:17)
[2019-06-26 09:52] LABS: ANION GAP 11 (5-19); BLOOD UREA NITROGEN 10 mg/dL (7-20); CALCIUM 8.7 mg/dL (8.4-10.2); CARBON DIOXIDE 21 mmol/L (22-30); CHLORIDE 108 mmol/L (98-107); GLUCOSE 118 mg/dL (75-110); POTASSIUM 3.2 mmol/L (3.6-5.0)
[2019-06-26] MEDS ORDERED: (PENDING PHARMACY ID) (Sertraline Hcl [Zoloft] 25 MG) PO SCH (10:00)
[2019-06-26] MEDS ORDERED: POTASSI CL 20 MEQ/50 ML RIDER 20 MEQ/50 ML RTUPB IV ONE (12:16)
[2019-06-26] MEDS ORDERED: POTASSIUM CHLORIDE 10 MEQ CAPSULE.ER PO ONE (12:16)
--- NOTE | 2019-06-26 12:19 | PDOC PROGRESS REPORT ---
Subjective Progress Note for:: 06/26/19 Subjective:: This is a 79-year-old female with a past medical history of atrial fibrillation on Xarelto, hypertension, dyslipidemia, GERD, nephrolithiasis and recurrent UTI. She was admitted for acute encephalopathy neuropathy secondary to sepsis from acute pyelonephritis. She was started on IV antibiotics. 06/25: Patient appears more coherent and conversant today. She is oriented to person, place and knows that it is 2019. She denies acute complaints. No fever, chest pain or shortness of breath. 06/26: No acute event overnight. She continues to improve. She appears to be at her baseline mentation. Denies acute complaints. No fever or chills. Blood culture growing gram-negative rods 1/2 bottles. Anticipate discharge in the next 24 hours pending final blood culture results. Reason For Visit: UTI W SEPSIS AMS Physical Exam Vital Signs: Temp Pulse Resp BP Pulse Ox 99.1 F 61 16 156/76 H 95 06/26/19 07:44 06/26/19 08:41 06/26/19 08:41 06/26/19 07:44 06/26/19 08:41 Intake & Output 06/25/19 06/26/19 06/27/19 06:59 06:59 06:59 Intake Total 1776 2055 Balance 1776 2055 Weight 133 lb 2.547 oz 133 lb 2.547 oz General appearance: PRESENT: no acute distress, well-developed, well-nourished Head exam: PRESENT: atraumatic, normocephalic Eye exam: PRESENT: conjunctiva pink, EOMI, PERRLA. ABSENT: scleral icterus Ear exam: PRESENT: normal external ear exam Mouth exam: PRESENT: moist, tongue midline Neck exam: ABSENT: carotid bruit, JVD, lymphadenopathy, thyromegaly Respiratory exam: PRESENT: clear to auscultation samia. ABSENT: rales, rhonchi, wheezes Cardiovascular exam: PRESENT: RRR. ABSENT: diastolic murmur, rubs, systolic murmur Pulses: PRESENT: normal dorsalis pedis pul GI/Abdominal exam: PRESENT: normal bowel sounds, soft. ABSENT: distended, guarding, mass, organolmegaly, rebound, tenderness Rectal exam: PRESENT: deferred Extremities exam: PRESENT: full ROM. ABSENT: calf tenderness, clubbing, pedal edema Neurological exam: PRESENT: alert, awake, oriented to person, oriented to place, CN II-XII grossly intact. ABSENT: motor sensory deficit Results Laboratory Results: 06/26/19 09:26 06/26/19 09:26 06/26/19 06/26/19 09:26 09:26 WBC 10.9 H RBC 3.46 L Hgb 11.2 L Hct 33.0 L MCV 95 MCH 32.4 MCHC 34.0 RDW 14.4 H Plt Count 190 Seg Neutrophils % 85.1 H Sodium 139.5 Potassium 3.2 L Chloride 108 H Carbon Dioxide 21 L Anion Gap 11 BUN 10 Creatinine 0.81 Est GFR ( Amer) > 60 Glucose 118 H Calcium 8.7 06/24/19 01:30 Catheterized Urine Urine Culture - Final Escherichia Coli 06/24/19 00:55 Troponin I 0.025 Impressions: Abdomen/Pelvis CT 06/24/19 00:00 IMPRESSION: Mild dilatation of the left UPJ without visualized ureteral or bladder calculi. Suspect recent stone passage. Correlate with urinalysis. Chest X-Ray 06/24/19 00:45 IMPRESSION: No acute cardiopulmonary process copyright 2011 [facility] [employer]- All Rights Reserved Assessment and Plan - Diagnosis (1) Acute encephalopathy Is this a current diagnosis for this admission?: Yes Plan: Improved. Secondary to sepsis. (2) Sepsis Qualifiers: Sepsis type: sepsis due to unspecified organism Sepsis acute organ dysfunction status: without acute organ dysfunction Qualified Code(s): A41.9 - Sepsis, unspecified organism Is this a current diagnosis for this admission?: Yes Plan: Secondary to acute pyelonephritis. Urine culture grew pansensitive E. coli. Blood cultures growing gram-negative rods 1/2 bottles. Continue Rocephin. Discontinue vancomycin. 06/26: Blood culture growing gram-negative rods 1/2 bottles. Anticipate discharge in the next 24 hours pending final blood culture results. (3) Acute pyelonephritis Is this a current diagnosis for this admission?: Yes Plan: As per #2. (4) Paroxysmal atrial fibrillation Is this a current diagnosis for this admission?: Yes Plan: Continue dabigatran. Resumed Tikosyn and metoprolol. - Time Time Spent with patient: 25-34 minutes
[2019-06-26] MEDS: LISINOPRIL 10 MG TABLET PO SCH (13:05)
[2019-06-26 20:51] LABS: C DIFFICILE GDH NEGATIVE (NEGATIVE)
[2019-06-26] MEDS: CEFTRIAXONE 1 GM/D5W RTU 1 GM/50 ML RTUPB IV SCH (21:28)
[2019-06-26] MEDS: NORMAL SALINE 1000 ML 1,000 ML IV PRN (21:32)
[2019-06-27] MEDS ORDERED: ATROPINE SULFATE 1% OPH SOLN 5 ML BOTTLE ONE (04:12)
[2019-06-27] MEDS: PANTOPRAZOLE SODIUM 40 MG TABLET.DR PO SCH (09:39)
[2019-06-27] MEDS: DOFETILIDE 125 MCG CAPSULE PO SCH (09:39)
[2019-06-27] MEDS: LISINOPRIL 10 MG TABLET PO SCH (09:39)
[2019-06-27] MEDS: DABIGATRAN ETEXILATE 150 MG CAPSULE PO SCH (09:39)
[2019-06-27] MEDS: SERTRALINE HCL 50 MG TABLET PO SCH (09:39)
[2019-06-27] MEDS: MAGNESIUM OXIDE 400 MG TABLET PO SCH (09:40)
[2019-06-27] MEDS: ATORVASTATIN CALCIUM 80 MG TABLET PO SCH (09:40)
[2019-06-27] MEDS: DOCUSATE SODIUM 100 MG CAPSULE PO SCH (09:40)
[2019-06-27] MEDS: METOPROLOL SUCCINATE 50 MG TAB.SR.24H PO SCH (09:40)
[2019-06-27] MEDS ORDERED: AMOXICILLIN TR/POT CLAVULANATE 500-125 MG TAB PO SCH (10:00)
[2019-06-27] MEDS ORDERED: AMLODIPINE BESYLATE 2.5 MG TABLET PO SCH (10:00)
[2019-06-27 10:18] VITALS: BP 125/61
--- NOTE | 2019-06-27 16:42 | PDOC DISCHARGE SUMMARY ---
Impression - Admit/DC Date/PCP Admission Date/Primary Care Provider: 06/24/19 05:10 SAMI BONILLA PA-C Discharge Date: 06/27/19 - Discharge Diagnosis (1) Acute encephalopathy Is this a current diagnosis for this admission?: Yes (2) Sepsis Is this a current diagnosis for this admission?: Yes (3) Acute pyelonephritis Is this a current diagnosis for this admission?: Yes (4) Paroxysmal atrial fibrillation Is this a current diagnosis for this admission?: Yes - Additional Information Resuscitation Status: Full Code Discharge Diet: As Tolerated Discharge Activity: Activity As Tolerated Referrals: SAMI BONILLA PA-C [Primary Care Provider] - 07/02/19 1:30 pm Prescriptions: Amox Tr/Potassium Clavulanate [Augmentin 875-125 mg Tablet] 1 tab PO BID 5 Days #10 tablet Home Medications: Amiodarone HCl [Cordarone 200 mg Tablet] 200 mg PO DAILY 06/24/19 Amlodipine Besylate [Norvasc 2.5 mg Tablet] 2.5 mg PO DAILY 06/24/19 Atorvastatin Calcium [Lipitor 80 mg Tablet] 80 mg PO DAILY 06/24/19 Dabigatran Etexilate Mesylate [Pradaxa 150 mg Capsule] 150 mg PO BID 06/24/19 Dofetilide [Tikosyn] 250 mcg PO BID 06/24/19 Gabapentin [Neurontin 300 mg Capsule] 300 mg PO Q8 06/24/19 Lisinopril [Prinivil 40 mg Tablet] 40 mg PO DAILY 06/24/19 Magnesium Oxide [Magnesium] 400 mg PO DAILY 06/24/19 Metoprolol Succinate [Toprol Xl 50 mg Tab.sr] 50 mg PO BID 06/24/19 Naloxone HCl [Narcan] 4 mg NS ASDIR PRN 06/24/19 Pantoprazole Sodium [Protonix [address] Tablet] 40 mg PO DAILY 06/24/19 Ranitidine HCl [Zantac] 150 mg PO BID 06/24/19 Sertraline HCl [Zoloft] 25 mg PO DAILY 06/24/19 Tapentadol Hydrochloride [Nucynta] 50 mg PO BIDP PRN 06/24/19 Amox Tr/Potassium Clavulanate [Augmentin 875-125 mg Tablet] 1 tab PO BID 5 Days #10 tablet 06/27/19 History of Present Illiness History of Present Illness: Admitting hospitalist's H&P: EDEN TRAORE is a 79 year old female whose history is obtained by the record as she is confused includes atrial fibrillation on Xarelto, hypertension, dyslipidemia, GERD, nephrolithiasis and recurrent UTI. Patient presents with 3 days of fever developing confusion prompting an evaluation in the emergency room. She was discovered by EMS to have temperature of 102.5 and confusion, she received lactated Ringer's, Tylenol and brought to the emergency room for evaluation where she is found to have persistent confusion, hypotension, bandemia and pyuria. She started on empiric antibiotics and referred to the hospitalist for admission. Patient is awake and alert oriented to self from a normal baseline. Hospital Course Hospital Course: This is a 79-year-old female with a past medical history of atrial fibrillation on Xarelto, hypertension, dyslipidemia, GERD, nephrolithiasis and recurrent UTI. She was admitted for acute encephalopathy secondary to sepsis from acute pyelonephritis. She was started on IV antibiotics. She significantly responded well to IV antibiotics. She had some loose stools which are more likely deemed to be from Rocephin. C. difficile testing was negative. Blood culture grew E. coli 1/2 bottles. Urine culture also grew E. coli. She returned to her baseline mentation. She will be discharged on Augmentin. Physical Exam Vital Signs: Temp Pulse Resp BP Pulse Ox 97.5 F 71 14 125/61 99 06/27/19 10:17 06/27/19 10:17 06/27/19 10:17 06/27/19 10:17 06/27/19 10:17 Intake & Output 06/26/19 06/27/19 06/28/19 06:59 06:59 06:59 Intake Total 2055 1752 Output Total 1300 Balance 2055 452 Weight 133 lb 2.547 oz 130 lb 8.218 oz General appearance: PRESENT: no acute distress, well-developed, well-nourished Head exam: PRESENT: atraumatic, normocephalic Eye exam: PRESENT: conjunctiva pink, EOMI, PERRLA. ABSENT: scleral icterus Ear exam: PRESENT: normal external ear exam Mouth exam: PRESENT: moist, tongue midline Neck exam: ABSENT: carotid bruit, JVD, lymphadenopathy, thyromegaly Respiratory exam: PRESENT: clear to auscultation samia. ABSENT: rales, rhonchi, wheezes Cardiovascular exam: PRESENT: RRR. ABSENT: diastolic murmur, rubs, systolic murmur Pulses: PRESENT: normal dorsalis pedis pul GI/Abdominal exam: PRESENT: normal bowel sounds, soft. ABSENT: distended, guarding, mass, organolmegaly, rebound, tenderness Rectal exam: PRESENT: deferred Extremities exam: PRESENT: full ROM. ABSENT: calf tenderness, clubbing, pedal edema Neurological exam: PRESENT: alert, awake, oriented to person, oriented to place, oriented to time, oriented to situation, CN II-XII grossly intact. ABSENT: motor sensory deficit Results Laboratory Results: WBC 10.9 10^3/uL (4.0-10.5) H 06/26/19 09:26 RBC 3.46 10^6/uL (3.72-5.28) L 06/26/19 09:26 Hgb 11.2 g/dL (12.0-15.5) L 06/26/19 09:26 Hct 33.0 % (36.0-47.0) L 06/26/19 09:26 MCV 95 fl (80-97) 06/26/19 09:26 MCH 32.4 pg (27.0-33.4) 06/26/19 09:26 MCHC 34.0 g/dL (32.0-36.0) 06/26/19 09:26 RDW 14.4 % (11.5-14.0) H 06/26/19 09:26 Plt Count 190 10^3/uL (150-450) 06/26/19 09:26 Lymph % (Auto) 8.4 % (13-45) L 06/26/19 09:26 Ocean % (Auto) 5.4 % (3-13) 06/26/19 09:26 Eos % (Auto) 0.7 % (0-6) 06/26/19 09:26 Baso % (Auto) 0.4 % (0-2) 06/26/19 09:26 Absolute Neuts (auto) 9.3 10^3/uL (1.7-8.2) H 06/26/19 09:26 Absolute Lymphs (auto) 0.9 10^3/uL (0.5-4.7) 10/26/19 09:26 Absolute Monos (auto) 0.6 10^3/uL (0.1-1.4) 06/26/19 09:26 Absolute Eos (auto) 0.1 10^3/uL (0.0-0.6) 06/26/19 09:26 Absolute Basos (auto) 0.0 10^3/uL (0.0-0.2) 06/26/19 09:26 Total Counted 100 06/24/19 00:55 Seg Neutrophils % 85.1 % (42-78) H 06/26/19 09:26 Seg Neuts % (Manual) 83 % (42-78) H 06/24/19 00:55 Band Neutrophils % 10 % (3-5) H 06/24/19 00:55 Lymphocytes % (Manual) 2 % (13-45) L 06/24/19 00:55 Monocytes % (Manual) 3 % (3-13) 06/24/19 00:55 Eosinophils % (Manual) 0 % (0-6) 06/24/19 00:55 Basophils % (Manual) 0 % (0-2) 06/24/19 00:55 Metamyelocytes % 2 % (0) H 06/24/19 00:55 Abs Neuts (Manual) 7.8 10^3/uL (1.7-8.2) 06/24/19 00:55 Abs Lymphs (Manual) 0.2 10^3/uL (0.5-4.7) L 06/24/19 00:55 Abs Monocytes (Manual) 0.2 10^3/uL (0.1-1.4) 06/24/19 00:55 Absolute Eos (Manual) 0.0 10^3/uL (0.0-0.6) 06/24/19 00:55 Abs Basophils (Manual) 0.0 10^3/uL (0.0-0.2) 06/24/19 00:55 Platelet Comment ADEQUATE 06/24/19 00:55 Polychromasia SLIGHT 06/24/19 00:55 Anisocytosis SLIGHT 06/24/19 00:55 VBG pH 7.43 (7.30-7.42) H 06/24/19 00:55 VBG pCO2 36.1 mmHg (35-63) 06/24/19 00:55 VBG HCO3 23.6 mmol/L (20-32) 06/24/19 00:55 VBG Base Excess -0.1 mmol/L 06/24/19 00:55 Sodium 139.5 mmol/L (137-145) 06/26/19 09:26 Potassium 3.8 mmol/L (3.6-5.0) 06/26/19 18:00 Chloride 108 mmol/L (98-107) H 06/26/19 09:26 Carbon Dioxide 21 mmol/L (22-30) L 06/26/19 09:26 Anion Gap 11 (5-19) 06/26/19 09:26 BUN 10 mg/dL (7-20) 06/26/19 09:26 Creatinine 0.81 mg/dL (0.52-1.25) 06/26/19 09:26 Est GFR ( Amer) > 60 (>60) 06/26/19 09:26 Est GFR (MDRD) Non-Af > 60 (>60) 06/26/19 09:26 Glucose 118 mg/dL (75-110) H 06/26/19 09:26 POC Glucose 106 mg/dL (70-110) 06/24/19 14:02 Lactic Acid 1.9 mmol/L (0.7-2.1) 06/24/19 05:20 Calcium 8.7 mg/dL (8.4-10.2) 06/26/19 09:26 Magnesium 1.6 mg/dL (1.6-2.3) 06/24/19 00:55 Total Bilirubin 1.5 mg/dL (0.2-1.3) H 06/24/19 00:55 Direct Bilirubin 0.6 mg/dL (0.0-0.4) H 06/24/19 00:55 Neonat Total Bilirubin Not Reportable 06/24/19 00:55 Neonat Direct Bilirubin Not Reportable 06/24/19 00:55 Neonat Indirect Bili Not Reportable 06/24/19 00:55 AST 24 U/L (14-36) 06/24/19 00:55 ALT 15 U/L (<35) 06/24/19 00:55 Alkaline Phosphatase 98 U/L (38-126) 06/24/19 00:55 Troponin I 0.025 ng/mL 06/24/19 00:55 Total Protein 6.3 g/dL (6.3-8.2) 06/24/19 00:55 Albumin 3.5 g/dL (3.5-5.0) 06/24/19 00:55 Lipase 51.4 U/L (23-300) 06/24/19 00:55 TSH 3.71 uIU/mL (0.47-4.68) 06/24/19 00:55 Urine Color YELLOW 06/24/19 01:30 Urine Appearance CLOUDY 06/24/19 01:30 Urine pH 5.0 (5.0-9.0) 06/24/19 01:30 Ur Specific [place] 1.010 06/24/19 01:30 Urine Protein 30 mg/dL (NEGATIVE) H 06/24/19 01:30 Urine Glucose (UA) NEGATIVE mg/dL (NEGATIVE) 06/24/19 01:30 Urine Ketones TRACE mg/dL (NEGATIVE) H 06/24/19 01:30 Urine Blood LARGE (NEGATIVE) H 06/24/19 01:30 Urine Nitrite POSITIVE (NEGATIVE) H 06/24/19 01:30 Urine Bilirubin NEGATIVE (NEGATIVE) 06/24/19 01:30 Urine Urobilinogen NEGATIVE mg/dL (<2.0) 06/24/19 01:30 Ur Leukocyte Esterase MODERATE (NEGATIVE) H 06/24/19 01:30 Urine WBC (Auto) 120 /HPF 06/24/19 01:30 Urine RBC (Auto) 6 /HPF 06/24/19 01:30 Urine Bacteria (Auto) 1+ /HPF 06/24/19 01:30 Urine WBC Clumps MANY /HPF 06/24/19 01:30 Squamous Epi Cells Auto <1 /HPF 06/24/19 01:30 Urine Mucus (Auto) RARE /LPF 06/24/19 01:30 Urine Ascorbic Acid NEGATIVE (NEGATIVE) 06/24/19 01:30 Stl C. Difficile GDH Ag NEGATIVE (NEGATIVE) 06/26/19 19:00 Stl C.difficile Tox A&B NEGATIVE (NEGATIVE) 06/26/19 19:00 Influenza A (Rapid) NEGATIVE (NEGATIVE) 06/24/19 01:10 Influenza B (Rapid) NEGATIVE (NEGATIVE) 06/24/19 01:10 06/24/19 00:55 Troponin I 0.025 Impressions: Abdomen/Pelvis CT 06/24/19 00:00 IMPRESSION: Mild dilatation of the left UPJ without visualized ureteral or bladder calculi. Suspect recent stone passage. Correlate with urinalysis. Chest X-Ray 06/24/19 00:45 IMPRESSION: No acute cardiopulmonary process copyright 2010 [employer]- All Rights Reserved Stroke Is this a Stroke Patient?: No Acute Heart Failure - Is this a Heart Failure Patient?: No
== END 2019-06-27 10:44 | disposition home or self-care (01) | DRG 872 ==
LOC: ER 00:30 → EH 05:10 → 3N 16:40
PROVIDERS: ADMIT Internal Medicine; ATTEND Internal Medicine
PROC: 3E0F73Z Introduction of Anti-inflammatory into Respiratory Tract, Via Natural or Artificial Opening (ICD-10-PCS; principal; 2019-06-27)
DX: A41.9 Sepsis, unspecified organism (principal); N10 Acute pyelonephritis; E87.1 Hypo-osmolality and hyponatremia; B96.20 Unspecified Escherichia coli [E. coli] as the cause of diseases classified elsewhere; I48.0 Paroxysmal atrial fibrillation; I10 Essential (primary) hypertension; E78.5 Hyperlipidemia, unspecified; K21.9 Gastro-esophageal reflux disease without esophagitis; E87.6 Hypokalemia; E86.0 Dehydration; Z23 Encounter for immunization; Z79.01 Long term (current) use of anticoagulants; Z88.6 Allergy status to analgesic agent; Z91.030 Bee allergy status; Z79.899 Other long term (current) drug therapy
CPT/HCPCS: 36415; 71045; 74176; 80048; 80053; 81001; 82803; 82962; 83605; 83690; 83735; 84132; 84443; 84484; 85025; 87040; 87077; 87086; 87088; 87186; 87324; 87449; 87804; 90686; 93005; 93010; 96361; 96365; 96375; 99291; J0696; J2405; J3370; J3480; J3490; J7030; J7060

== ENCOUNTER 2019-08-03 11:12 | Emergency (ER) | payer MEDICARE, BC ==
--- NOTE | 2019-08-03 11:33 | ER Document Report ---
ED Medical Screen (RME) - General Chief Complaint: Possible Kidney Stone Stated Complaint: FLANK PAIN Time Seen by Provider: 08/03/19 11:27 Primary Care Provider: SAMI BONILLA PA-C [Primary Care Provider] - Follow up as needed TRAVEL OUTSIDE OF THE [place] IN LAST 30 DAYS: No - HPI Notes: 08/03/19 11:30 Patient is a 79-year-old female with history of hypertension, recurrent kidney stones, GERD, anxiety who presents for the direction of her family provider for further evaluation of her urinary frequency, burning, urgency is been going on for the past several days. Patient states that she may have passed a stone 3 days ago, but does not have the flank pain she was previously experiencing at that time. Patient states that they did not put her on any antibiotic until she is evaluated here because she was admitted for sepsis about a month ago for something similar. Patient states that she does not feel as bad as she did when she was here a month ago and she is accompanied by her . Pt was told she needed labs performed. No fever, chest pain, shortness of breath, vomiting. I have treated and performed a rapid initial assessment of this patient. A comprehensive ED assessment and evaluation of the patient, analysis of test results and completion of medical decision making process will be conducted by additional ED providers. PHYSICAL EXAMINATION: GENERAL: Well-appearing, well-nourished and in no acute distress. Nontoxic- appearing. A&O. Answers questions appropriately. Vitals: acceptable. - Related Data Allergies/Adverse Reactions: fentanyl [From [employer]ages[employer]] Allergy (Mild, Verified 08/03/19 11:27) felt weird, couldn't be still bee venom protein (honey bee) Allergy (Verified 08/03/19 11:27) Anaphylaxis Past Medical History - Past Medical History Cardiac Medical History: Reports: Hx Atrial Fibrillation, Hx Hypertension - ON MEDS Denies: Hx Congestive Heart Failure, Hx Coronary Artery Disease, Hx Heart Attack, Hx Heart Murmur Pulmonary Medical History: Reports: Hx Asthma - H/O WHEN YOUNGER, NO PRESENT TREATMENT, Hx Pneumonia - "YRS AGO" Denies: Hx Bronchitis, Hx COPD, Hx Tuberculosis Neurological Medical History: Denies: Hx Cerebrovascular Accident, Hx Seizures Renal/ Medical History: Reports: Hx Kidney Stones. Denies: Hx Peritoneal Dialysis GI Medical History: Reports: Hx Gastroesophageal Reflux Disease, Hx Hiatal Hernia, Hx Ulcer. Denies: Hx Hepatitis Musculoskeltal Medical History: Reports Hx Arthritis - GENERALIZED Psychiatric Medical History: Reports: Hx Depression Infectious Medical History: Denies: Hx Hepatitis Past Surgical History: Reports: Hx Appendectomy, Hx Hysterectomy, Hx Neurologic Surgery - Neck fusion, Hx Orthopedic Surgery. Denies: Hx Bowel Surgery, Hx Mastectomy, Hx Open Heart Surgery, Hx Pacemaker - Immunizations Hx Diphtheria, Pertussis, Tetanus Vaccination: Yes Physical Exam - Vital signs Vitals: Temp Pulse Resp BP Pulse Ox 98.3 F 58 L 16 127/63 H 100 08/03/19 11:23 08/03/19 11:23 08/03/19 11:23 08/03/19 11:23 08/03/19 11:23 Course - Vital Signs Vital signs: Temp Pulse Resp BP Pulse Ox 98.3 F 58 L 16 127/63 H 100 08/03/19 11:23 08/03/19 11:23 08/03/19 11:23 08/03/19 11:23 08/03/19 11:23 Doctor's Discharge - Discharge Referrals: SAMI BONILLA PA-C [Primary Care Provider] - Follow up as needed
[2019-08-03 12:11] LABS: ABSOLUTE EOSINOPHILS # (AUTO) 0.4 10^3/uL (0.0-0.6); ABSOLUTE LYMPHOCYTES (AUTO) 1.5 10^3/uL (0.5-4.7); ABSOLUTE MONOCYTES (AUTO) 0.3 10^3/uL (0.1-1.4); ABSOLUTE NEUT (AUTO) 5.2 10^3/uL (1.7-8.2); BASOPHILS % (AUTO) 0.1 % (0-2); HEMOGLOBIN 12.8 g/dL (12.0-15.5); LYMPHOCYTES % (AUTO) 19.7 % (13-45); MEAN CORPUSCULAR HEMOGLOBIN 32.6 pg (27.0-33.4); MEAN CORPUSCULAR HGB CONC 32.8 g/dL (32.0-36.0); MEAN CORPUSCULAR VOLUME 99 fl (80-97); MONOCYTES % (AUTO) 4.6 % (3-13); PLATELET COUNT 207 10^3/uL (150-450); RED BLOOD COUNT 3.93 10^6/uL (3.72-5.28); RED CELL DISTRIBUTION WIDTH 14.9 % (11.5-14.0); SEGMENTED NEUTROPHILS % (AUTO) 70.6 % (42-78); TOTAL CELLS COUNTED % (AUTO) 100 %; WHITE BLOOD COUNT 7.4 10^3/uL (4.0-10.5)
[2019-08-03 12:21] LABS: APPEARANCE,URINE CLOUDY; BILIRUBIN,URINE NEGATIVE (NEGATIVE); COLOR,URINE YELLOW; GLUCOSE, URINE NEGATIVE (NEGATIVE); KETONES,URINE NEGATIVE (NEGATIVE); LEUKOCYTE ESTERASE,URINE LARGE (NEGATIVE); NITRITE,URINE POSITIVE (NEGATIVE); PROTEIN,URINE 30 mg/dL (NEGATIVE); URINE SPECIFIC GRAVITY 1.015; UROBILINOGEN,URINE NEGATIVE mg/dL (<2.0)
[2019-08-03 12:35] LABS: ALBUMIN 4.2 g/dL (3.5-5.0); ALKALINE PHOSPHATASE 80 U/L (38-126); ANION GAP 8 (5-19); ASPARTATE AMINO TRANSFERASE 23 U/L (14-36); BILIRUBIN,DIRECT 0.1 mg/dL (0.0-0.4); BILIRUBIN,TOTAL 0.7 mg/dL (0.2-1.3); BLOOD UREA NITROGEN 18 mg/dL (7-20); CALCIUM 9.7 mg/dL (8.4-10.2); CARBON DIOXIDE 27 mmol/L (22-30); CHLORIDE 108 mmol/L (98-107); GLUCOSE 92 mg/dL (75-110); POTASSIUM 4.5 mmol/L (3.6-5.0); TOTAL PROTEIN 7.3 g/dL (6.3-8.2)
--- NOTE | 2019-08-03 14:26 | ER Document Report ---
ED GI/ - General Chief Complaint: Flank Pain Stated Complaint: FLANK PAIN Time Seen by Provider: 08/03/19 11:27 Primary Care Provider: SAMI BONILLA PA-C [Primary Care Provider] - Follow up in 3-5 days Notes: Patient is a 39-year-old female who presents to the emergency department with a chief complaint of flank pain and abdominal pain. Patient was seen by her primary care provider and was referred here to the emergency department for urinary tract infection. Patient has history of sepsis from a urinary tract infection and was admitted into the hospital about a month ago. Patient states that she is feeling better than last time she was here. Patient denies any nausea or vomiting. Patient states that she had diarrhea when she was in the hospital, but denies any diarrhea at this time. TRAVEL OUTSIDE OF THE [place] IN LAST 30 DAYS: No - Related Data Allergies/Adverse Reactions: fentanyl [From Duragesic] Allergy (Mild, Verified 08/03/19 11:27) felt weird, couldn't be still bee venom protein (honey bee) Allergy (Verified 08/03/19 11:27) Anaphylaxis Home Medications: HTN, AFIB, BLOOD THINNER Past Medical History - Social History Smoking Status: Never Smoker Frequency of alcohol use: None Drug Abuse: None Family History: Hypertension, Other - Mom had end stage kidney disease Patient has suicidal ideation: No Patient has homicidal ideation: No - Past Medical History Cardiac Medical History: Reports: Hx Atrial Fibrillation, Hx Hypertension - ON MEDS Denies: Hx Congestive Heart Failure, Hx Coronary Artery Disease, Hx Heart Attack, Hx Heart Murmur Pulmonary Medical History: Reports: Hx Asthma - H/O WHEN YOUNGER, NO PRESENT TREATMENT, Hx Pneumonia - "YRS AGO" Denies: Hx Bronchitis, Hx COPD, Hx Tuberculosis Neurological Medical History: Denies: Hx Cerebrovascular Accident, Hx Seizures Renal/ Medical History: Reports: Hx Kidney Stones. Denies: Hx Peritoneal Dialysis GI Medical History: Reports: Hx Gastroesophageal Reflux Disease, Hx Hiatal Hernia, Hx Ulcer. Denies: Hx Hepatitis Musculoskeletal Medical History: Reports Hx Arthritis - GENERALIZED Psychiatric Medical History: Reports: Hx Depression Infectious Medical History: Denies: Hx Hepatitis Past Surgical History: Reports: Hx Appendectomy, Hx Hysterectomy, Hx Neurologic Surgery - Neck fusion, Hx Orthopedic Surgery. Denies: Hx Bowel Surgery, Hx Mastectomy, Hx Open Heart Surgery, Hx Pacemaker - Immunizations Hx Diphtheria, Pertussis, Tetanus Vaccination: Yes Hx Pneumococcal Vaccination: 09/01/13 Review of Systems - Review of Systems Notes: REVIEW OF SYSTEMS: CONSTITUTIONAL : Denies recent illness. Denies recent unintentional weight loss. Denies fever, chills, or sweats. EENT: Denies eye, ear, throat, or mouth pain, discharge, or symptoms. Denies nasal or sinus congestion. CARDIOVASCULAR: Denies chest pain. RESPIRATORY: Denies shortness of breath, cough, congestion, difficulty breathing, or wheezing. GASTROINTESTINAL: See HPI. GENITOURINARY: See HPI. MUSCULOSKELETAL: Denies neck and back pain. Denies joint pain or swelling. SKIN: Denies rash, itchiness, or lesions HEMATOLOGIC : Denies easy bruising or bleeding. LYMPHATIC: Denies swollen, painful, enlarged glands. NEUROLOGICAL: Denies no numbness or tingling denies weakness. Denies headache. Denies altered mental status. Denies alteration in speech. PSYCHIATRIC: Denies stress, anxiety, alteration in sleep patterns, or depression. All other systems reviewed and negative. Physical Exam - Vital signs Vitals: Temp Pulse Resp BP Pulse Ox 98.3 F 58 L 16 127/63 H 100 08/03/19 11:23 08/03/19 11:23 08/03/19 11:23 08/03/19 11:23 08/03/19 11:23 - Notes Notes: PHYSICAL EXAMINATION: GENERAL: Appears well, healthy, well-nourished, no acute distress. HEAD: Normocephalic, atraumatic. EYES: PERRL, conjunctiva normal, all extraocular movements intact, sclera nonicteric ENT: Moist mucous membranes. NECK: Supple, no noticeable swelling, redness, rash. Normal range of motion. LUNGS: Equal breath sounds bilaterally and clear to auscultation. No wheezes rales or rhonchi. CARDIOVASCULAR: S1-S2, regular rate, regular rhythm. Radial pulses 2+, normal. ABDOMEN: Normoactive bowel sounds. Soft, mildly tender all quadrants, no guarding, no rebound tenderness, and no masses palpated. EXTREMITIES: Normal strength and range of motion, no pitting or edema. No cyanosis. NEUROLOGICAL: Moves all extremities upon command. Strength 5/5 in all extremities. PSYCH: Normal mood, normal affect. SKIN: Warm, dry. No rash, lesions, ulcerations noted. Normal skin turgor. BACK: Bilateral flank pain. Course - Re-evaluation Re-evalutation: 08/03/19 14:49 Patient's hematology is unremarkable. No leukocytosis noted. Her chemistries are not normal. Patient has a large amount of leukocytes in her urine, indicative of a urinary tract infection. She will be sent for a CT of the abdomen pelvis to evaluate for hydronephrosis, or infected kidney stone. She does have a small amount of blood in her urine. Patient states that she had a kidney stone and is not sure whether or not she passed one or not. 08/03/19 16:36 CT shows chronic UPJ stones. These are stable. No hydronephrosis or hydroureter noted. Patient will follow-up with her primary care provider in regards to this visit. Follow-up precautions were given. Verbal discharge instructions were given to the patient. They verbalized understanding. They are stable for discharge. - Vital Signs Vital signs: Temp Pulse Resp BP Pulse Ox 98.3 F 58 L 16 127/63 H 100 08/03/19 11:27 08/03/19 11:27 08/03/19 11:27 08/03/19 11:27 08/03/19 11:27 - Laboratory Result Diagrams: 08/03/19 11:58 08/03/19 11:58 Laboratory results interpreted by me: 08/03/19 08/03/19 08/03/19 11:58 11:58 11:58 MCV 99 H RDW 14.9 H Chloride 108 H Est GFR ( Amer) 56 L Est GFR (MDRD) Non-Af 46 L Urine Protein 30 H Urine Blood SMALL H Urine Nitrite POSITIVE H Ur Leukocyte Esterase LARGE H Discharge - Discharge Clinical Impression: Urinary tract infection Qualifiers: Urinary tract infection type: acute pyelonephritis Qualified Code(s): N10 - Acute pyelonephritis Condition: Stable Disposition: HOME, SELF-CARE Instructions: Cephalexin ([facility]), Urinary Tract Infection ([facility]) Additional Instructions: You have been diagnosed with a condition called pyelonephritis which is an infection involving your kidneys and bladder. You have been given a dose of antibiotics here in the emergency department to help begin to treat this infection. Your also being sent home on antibiotics. Please start taking these later on today when you fill the prescription. Complete the course even if you feel better. Please return if you have persistent vomiting, pass out, have worsening pain, become unable to tolerate fluids, or have any other symptoms that are concerning to you. Please follow-up with your primary care physician in the next 24-[address] scan showed that your kidney stones are stable and are not moving. Prescriptions: Cephalexin [Keflex] 500 mg PO BID #14 capsule Referrals: SAMI BONILLA PA-C [Primary Care Provider] - Follow up in 3-5 days
[2019-08-03] MEDS ORDERED: CEFTRIAXONE INJ 1000 MG VIAL IV ONE (14:43)
[2019-08-03] MEDS ORDERED: NORMAL SALINE 1000 ML 1,000 ML IV ONE (14:43)
--- NOTE | 2019-08-03 15:43 | RADIOLOGY REPORT (SQ) ---
EXAM DESCRIPTION: CT ABD/PELVIS NO ORAL OR IV COMPLETED DATE/TIME: 08/03/2019 3:26 pm REASON FOR STUDY: flank pain COMPARISON: 06/24/2019 TECHNIQUE: CT scan of the abdomen and pelvis performed without intravenous or oral contrast. Images reviewed with lung, soft tissue, and bone windows. Reconstructed coronal and sagittal MPR images revi ewed. All images stored on PACS. All CT scanners at this facility use dose modulation, iterative reconstruction, and/or weight based d osing when appropriate to reduce radiation dose to as low as reasonably achievable (ALARA). [facility]: Dose Right [facility]: CareDose [facility]: Dose Right [facility]: Teradose 4D [facility]: [employer] [place] RADIATION DOSE: CT Rad equipment meets quality standard of care and radiation dose reduction techniq ues were employed. CTDIvol: 4.9 mGy. DLP: 240 mGy-cm.mGy. LIMITATIONS: None. FINDINGS: LOWER CHEST: No significant findings. No nodules or infiltrates. NON-CONTRASTED LIVER, SPLEEN, ADRENALS: Evaluation limited by lack of IV contrast. No identified sign ificant masses. PANCREAS: No masses. No peripancreatic inflammatory changes. GALLBLADDER: No identified stones by CT criteria. No inflammatory changes to suggest cholecystitis. RIGHT KIDNEY AND URETER: Small right renal cysts. No significant calcifications. Slight prominenc e of the right renal pelvis this is new from prior study. No renal or ureteral stones. Right renal pelvic dilatation could represent a UPJ. Recently passed stone cannot be excluded. LEFT KIDNEY AND URETER: No suspicious masses. Assessment limited by lack of IV contrast. No signifi cant calcifications. No hydronephrosis or hydroureter. Probable extrarenal pelvis on the left. It is not significantly changed from prior study. AORTA AND RETROPERITONEUM: No aortic aneurysm. No retroperitoneal masses or adenopathy. Stable calci fied 10.8 mm splenic artery aneurysm BOWEL AND PERITONEAL CAVITY: No obvious masses or inflammatory changes. No free fluid. APPENDIX: Surgically absent. PELVIS, BLADDER, AND ABDOMINAL WALL:No abnormal masses. No free fluid. Bladder normal. BONES: There are degenerative changes in the spine. OTHER: No other significant finding. IMPRESSION: Mildly prominent right and left renal pelvis. Suspect bilateral chronic UPJ obstruction s. No renal or ureteral calculi. COMMENT: Quality ID # [id number]: Final reports with documentation of one or more dose reduction techniques (e.g., Automated exposure control, adjustment of the mA and/or kV according to patient size, use of iterative reconstruction technique) TECHNICAL DOCUMENTATION: JOB ID: [id number] [employer]- All Rights Reserved Reading location - IP/workstation name: [email or web address]
[2019-08-03 16:49] VITALS: BP 140/57
== END 2019-08-03 16:49 | disposition home or self-care (01) ==
LOC: ER 11:12
DX: N10 Acute pyelonephritis (principal); R10.9 Unspecified abdominal pain; I48.91 Unspecified atrial fibrillation; I10 Essential (primary) hypertension
CPT/HCPCS: 99284; 96361; 96365; 36415; 87086; 85025; 87088; 80053; 81001; 74176; J0696; J7030; 87186

== ENCOUNTER 2019-12-21 12:51 | Emergency (ER) | payer MEDICARE, BC ==
[2019-12-21] MEDS ORDERED: ACETAMINOPHEN 325 MG TABLET PO ONE (13:11)
--- NOTE | 2019-12-21 13:14 | ER Document Report ---
ED Medical Screen (RME) - General Chief Complaint: Fall Stated Complaint: FALL/HEAD INJURY Time Seen by Provider: 12/21/19 13:06 Primary Care Provider: SAMI BONILLA PA-C [Primary Care Provider] - Follow up as needed Mode of Arrival: Wheelchair Information source: Patient Notes: 79-year-old female presented to ED for complaint of pain to her head both hands both wrist right arm and left knee. She was walking outside to the car when she tripped and fallen hitting her head hands left knee and wrist. She does have abrasions to the face both hands both wrist and the left knee. She is on blood thinners. X-rays have been ordered for both hands both wrist left knee and CT of the head. Patient is alert and oriented respirations regular nonlabored at this time. I have greeted and performed a rapid initial assessment of this patient. A comprehensive ED assessment and evaluation of the patient, analysis of test results and completion of medical decision making process will be conducted by an additional ED providers. TRAVEL OUTSIDE OF THE [place] IN LAST 30 DAYS: No - Related Data Allergies/Adverse Reactions: fentanyl [From Duragesic] Allergy (Mild, Verified 08/03/19 11:27) felt weird, couldn't be still bee venom protein (honey bee) Allergy (Verified 08/03/19 11:27) Anaphylaxis Home Medications: pradaxa Past Medical History - Past Medical History Cardiac Medical History: Reports: Hx Atrial Fibrillation, Hx Hypertension - ON MEDS Denies: Hx Congestive Heart Failure, Hx Coronary Artery Disease, Hx Heart Attack, Hx Heart Murmur Pulmonary Medical History: Reports: Hx Asthma - H/O WHEN YOUNGER, NO PRESENT TREATMENT, Hx Pneumonia - "YRS AGO" Denies: Hx Bronchitis, Hx COPD, Hx Tuberculosis Neurological Medical History: Denies: Hx Cerebrovascular Accident, Hx Seizures Renal/ Medical History: Reports: Hx Kidney Stones. Denies: Hx Peritoneal Dialysis GI Medical History: Reports: Hx Gastroesophageal Reflux Disease, Hx Hiatal Hernia, Hx Ulcer. Denies: Hx Hepatitis Musculoskeltal Medical History: Reports Hx Arthritis - GENERALIZED Psychiatric Medical History: Reports: Hx Depression Infectious Medical History: Denies: Hx Hepatitis Past Surgical History: Reports: Hx Appendectomy, Hx Hysterectomy, Hx Neurologic Surgery - Neck fusion, Hx Orthopedic Surgery. Denies: Hx Bowel Surgery, Hx Mastectomy, Hx Open Heart Surgery, Hx Pacemaker - Immunizations Hx Diphtheria, Pertussis, Tetanus Vaccination: Yes Physical Exam - Vital signs Vitals: Temp Pulse Resp BP Pulse Ox 98.7 F 63 14 152/79 H 96 12/21/19 13:08 12/21/19 13:08 12/21/19 13:08 12/21/19 13:08 12/21/19 13:08 Course - Vital Signs Vital signs: Temp Pulse Resp BP Pulse Ox 98.7 F 63 14 152/79 H 96 12/21/19 13:08 12/21/19 13:08 12/21/19 13:08 12/21/19 13:08 12/21/19 13:08 Doctor's Discharge - Discharge Referrals: SAMI BONILLA PA-C [Primary Care Provider] - Follow up as needed
--- NOTE | 2019-12-21 13:57 | RADIOLOGY REPORT (SQ) ---
EXAM DESCRIPTION: KNEE LEFT 4 VIEW IMAGES COMPLETED DATE/TIME: 12/21/2019 1:41 pm REASON FOR STUDY: Fall injury pain to both hands both wrists left kn COMPARISON: None. NUMBER OF VIEWS: Five views. TECHNIQUE: AP, lateral, both oblique, and sunrise patella radiographic images acquired of the left k nee. LIMITATIONS: None. FINDINGS: MINERALIZATION: Decreased BONES: No acute fracture or dislocation. No worrisome bone lesions. JOINT: No dislocation. Tricompartment osteophytosis with joint space loss greatest in the patellofem oral compartment. SOFT TISSUES: No soft tissue swelling. No radio-opaque foreign body. OTHER: Vascular calcifications. IMPRESSION: No evidence of acute bony abnormality of the left knee. Mild to moderate tricompartment osteoarthritis greatest within the patellofemoral compartment. TECHNICAL DOCUMENTATION: JOB ID: [id number] 2010 [employer]- All Rights Reserved Reading location - IP/workstation name: [email or web address]
--- NOTE | 2019-12-21 13:59 | RADIOLOGY REPORT (SQ) ---
EXAM DESCRIPTION: CT HEAD WITHOUT IMAGES COMPLETED DATE/TIME: 12/21/2019 1:42 pm REASON FOR STUDY: Fall head injury on blood thinners COMPARISON: 10/13/2018 TECHNIQUE: Axial images acquired through the brain without intravenous contrast. Images reviewed wi th bone, brain and subdural windows. Additional sagittal and coronal reconstructions were generated. Images stored on PACS. All CT scanners at this facility use dose modulation, iterative reconstruction, and/or weight based d osing when appropriate to reduce radiation dose to as low as reasonably achievable (ALARA). [facility]: Dose Right [facility]: CareDose [facility]: Dose Right [facility]: Teradose 4D [facility]: iMICROQ RADIATION DOSE: CT Rad equipment meets quality standard of care and radiation dose reduction techniq ues were employed. CTDIvol: 53.2 mGy. DLP: 991 mGy-cm. mGy. LIMITATIONS: None. FINDINGS: VENTRICLES: Prominent. CEREBRUM: No masses. No hemorrhage. No midline shift. Areas of low density in the white matter mos t likely due to chronic micro-vascular ischemic change. No evidence for acute infarction. CEREBELLUM: No masses. No hemorrhage. No alteration of density. No evidence for acute infarction. EXTRAAXIAL SPACES: Mild age-related involutional change. No fluid collections. No masses. ORBITS AND GLOBE: No intra- or extraconal masses. Normal contour of globe without masses. CALVARIUM: No fracture. PARANASAL SINUSES: No fluid or mucosal thickening. SOFT TISSUES: Mild soft tissue swelling along the right frontal calvarium OTHER: No other significant finding. IMPRESSION: MILD CHRONIC CHANGES OF ATROPHY AND MICROVASCULAR ISCHEMIA. NO ACUTE PROCESS. SOFT TISSUE SWELLING ALONG THE RIGHT FRONTAL CALVARIUM. NO FRACTURE. EVIDENCE OF ACUTE STROKE: NO. TECHNICAL DOCUMENTATION: JOB ID: [id number] Quality ID # [id number]: Final reports with documentation of one or more dose reduction techniques (e.g., Au tomated exposure control, adjustment of the mA and/or kV according to patient size, use of iterative reconstruction technique) 2010 [employer]- All Rights Reserved Reading location - IP/workstation name: [email or web address]
--- NOTE | 2019-12-21 14:05 | RADIOLOGY REPORT (SQ) ---
EXAM DESCRIPTION: HAND BILATERAL 3 VIEWS IMAGES COMPLETED DATE/TIME: 12/21/2019 1:41 pm REASON FOR STUDY: Fall injury pain COMPARISON: None. EXAM PARAMETERS: NUMBER OF VIEWS: Three views. TECHNIQUE: AP, lateral and oblique radiographic images acquired of the right and left hand. LIMITATIONS: None. FINDINGS: RIGHT: MINERALIZATION: Decreased. BONES: No definite acute fracture. Severe degenerative changes at the proximal and distal interphala ngeal joints with osteophytosis, subchondral sclerosis and joint space loss. Gull wing deformity at multiple joints. 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 Additional degenerative changes at the 1st and 2nd carpometacarpal joint. JOINTS: As above. SOFT TISSUES: No soft tissue swelling. No foreign body. OTHER: No other significant finding. LEFT: MINERALIZATION: Decreased. BONES: No definite acute fracture. There is severe degenerative changes greatest at the 2nd through 4th proximal and distal interphalangeal joints with joint space loss, subchondral sclerosis and osteo phytosis. Gull wing deformity at multiple joint. There is ulnar subluxation of the 2nd and 3rd digi ts at the proximal interphalangeal joints, likely degenerative. JOINTS: As above. SOFT TISSUES: No soft tissue swelling. No foreign body. OTHER: No other significant finding. IMPRESSION: 1. No definite acute bony abnormality. 2. Extensive bilateral degenerative changes in a pattern most consistent with erosive osteoarthritis as detailed above. Ulnar subluxation at the left 2nd and 3rd proximal interphalangeal joints, likel y degenerative although acute component not entirely excluded. TECHNICAL DOCUMENTATION: JOB ID: [id number] 2010 [employer]- All Rights Reserved Reading location - IP/workstation name: [email or web address]
--- NOTE | 2019-12-21 14:37 | ER Document Report ---
ED Fall - General Chief Complaint: Fall Stated Complaint: FALL/HEAD INJURY Time Seen by Provider: 12/21/19 13:06 Primary Care Provider: SAMI BONILLA PA-C [Primary Care Provider] - Follow up in 3-5 days ANDREY HUYNH JR, DO [ACTIVE PROVISIONAL STAFF] - Follow up in 3-5 days JOEL GONZALEZ MD [ACTIVE STAFF] - Follow up in 3-5 days Mode of Arrival: Wheelchair Information source: Patient Notes: Patient is a 79-year-old female who presents emergency department after mechanical fall. Patient was walking out of [facility] and tripped over a curb. She ended up falling forward and bracing her arms out and hit her head. Patient denies any loss of consciousness. Patient is on Pradaxa. States that she had a slight headache, but the Tylenol in triage helped. Denies any shortness of breath, difficulty breathing, abdominal pain, back pain, neck pain, or any other symptoms. TRAVEL OUTSIDE OF THE [place] IN LAST 30 DAYS: No - Related data Allergies/Adverse Reactions: fentanyl [From Duragesic] Allergy (Mild, Verified 08/03/19 11:27) felt weird, couldn't be still bee venom protein (honey bee) Allergy (Verified 08/03/19 11:27) Anaphylaxis Home Medications: pradaxa Past Medical History - General Information source: Patient - Social History Smoking Status: Never Smoker Family History: Hypertension, Other - Mom had end stage kidney disease Patient has suicidal ideation: No Patient has homicidal ideation: No - Past Medical History Cardiac Medical History: Reports: Hx Atrial Fibrillation, Hx Hypertension - ON MEDS Denies: Hx Congestive Heart Failure, Hx Coronary Artery Disease, Hx Heart Attack, Hx Heart Murmur Pulmonary Medical History: Reports: Hx Asthma - H/O WHEN YOUNGER, NO PRESENT TREATMENT, Hx Pneumonia - "YRS AGO" Denies: Hx Bronchitis, Hx COPD, Hx Tuberculosis Neurological Medical History: Denies: Hx Cerebrovascular Accident, Hx Seizures Renal/ Medical History: Reports: Hx Kidney Stones. Denies: Hx Peritoneal Dialysis GI Medical History: Reports: Hx Gastroesophageal Reflux Disease, Hx Hiatal Hernia, Hx Ulcer. Denies: Hx Hepatitis Musculoskeletal Medical History: Reports Hx Arthritis - GENERALIZED Psychiatric Medical History: Reports: Hx Depression Infectious Medical History: Denies: Hx Hepatitis Past Surgical History: Reports: Hx Appendectomy, Hx Hysterectomy, Hx Neurologic Surgery - Neck fusion, Hx Orthopedic Surgery. Denies: Hx Bowel Surgery, Hx Mastectomy, Hx Open Heart Surgery, Hx Pacemaker - Immunizations Hx Diphtheria, Pertussis, Tetanus Vaccination: Yes Hx Pneumococcal Vaccination: 09/01/13 Review of Systems - Review of Systems Notes: REVIEW OF SYSTEMS: CONSTITUTIONAL : Denies recent illness. Denies recent unintentional weight loss. Denies fever, chills, or sweats. EENT: Denies eye, ear, throat, or mouth pain, discharge, or symptoms. Denies nasal or sinus congestion. CARDIOVASCULAR: Denies chest pain. RESPIRATORY: Denies shortness of breath, cough, congestion, difficulty breathing, or wheezing. GASTROINTESTINAL: Denies nausea, vomiting, and diarrhea. Denies abdominal pain. Denies constipation. GENITOURINARY: Denies difficulty urinating, burning, blood in urine, urgency or frequency. MUSCULOSKELETAL: Denies neck and back pain. See HPI. SKIN: See HPI. HEMATOLOGIC : Denies easy bruising or bleeding. LYMPHATIC: Denies swollen, painful, enlarged glands. NEUROLOGICAL: Denies no numbness or tingling denies weakness. Denies headache. Denies altered mental status. Denies alteration in speech. PSYCHIATRIC: Denies stress, anxiety, alteration in sleep patterns, or depression. All other systems reviewed and negative. Physical Exam - Vital signs Vitals: Temp Pulse Resp BP Pulse Ox 98.7 F 63 14 152/79 H 96 12/21/19 13:08 12/21/19 13:08 12/21/19 13:08 12/21/19 13:08 12/21/19 13:08 - Notes Notes: PHYSICAL EXAMINATION: GENERAL: Appears well, healthy, well-nourished, no acute distress. HEAD: Hematoma noted to anterior right head. EYES: PERRL, conjunctiva normal, all extraocular movements intact, sclera nonicteric ENT: Moist mucous membranes. NECK: Supple, no noticeable swelling, redness, rash. Normal range of motion. LUNGS: Equal breath sounds bilaterally and clear to auscultation. No wheezes rales or rhonchi. CARDIOVASCULAR: S1-S2, regular rate, regular rhythm. Radial pulses 2+, normal. ABDOMEN: Normoactive bowel sounds. Soft, nontender, no guarding, no rebound tenderness, and no masses palpated. EXTREMITIES: Normal strength and range of motion, no pitting or edema. No cyanosis. NEUROLOGICAL: Moves all extremities upon command. Strength 5/5 in all extremities. PSYCH: Normal mood, normal affect. SKIN: Warm, dry. Abrasions noted to left knee, bilateral hands and forearms, and forehead. Loose skin turgor. Course - Re-evaluation Re-evalutation: 12/21/19 CT of the head does not show any intracranial bleed, but shows chronic changes and microvascular ischemia, consistent with the patient's age of 79. Patient also has soft tissue swelling to the right frontal calvarium. There is a hematoma to this area. The bleeding is well controlled. There are multiple very small abrasions noted to her forehead. There are also abrasions noted to bilateral forearms and hands. Due to the patient having very frail and fragile skin, the abrasions and lacerations are not repairable via sutures. Patient will be placed in an ulnar splint, as there is a possible fracture noted to her second and third proximal interphalangeal joints. She also has tenderness to her right proximal fifth digit. She is able to flex and extend all digits with no difficulty. Patient has arthritis. Patient is alert and oriented. No neurological deficits noted. Knee x-ray is normal. There is an abrasion noted to his right knee. Patient will follow-up with her primary care provider and orthopedics. Follow-up precautions were given. Verbal discharge instructions were given to the patient. They verbalized understanding. They are stable for discharge. - Vital Signs Vital signs: Temp Pulse Resp BP Pulse Ox 98.6 F 57 L 16 142/68 H 96 12/21/19 15:05 12/21/19 15:05 12/21/19 15:05 12/21/19 15:05 12/21/19 15:05 Discharge - Discharge Clinical Impression: Bilateral hand pain Fall Qualifiers: Encounter type: initial encounter Qualified Code(s): W19.XXXA - Unspecified fall, initial encounter Left knee pain Qualifiers: Chronicity: acute Qualified Code(s): M25.562 - Pain in left knee Condition: Stable Disposition: HOME, SELF-CARE Additional Instructions: You were seen today in the emergency department after a fall. You are being placed in a splint. Your CT was normal. Your x-ray shows that you could have a possible break in your wrist/hand. Please follow-up with orthopedics in regards to this visit. Take Tylenol 1000 mg every 6 hours as needed for pain. If you vomit, have worsening symptoms, or have any symptoms that are worrisome to you, please return to the emergency department. Apply bacitracin or triple antibiotic ointment to your abrasions and cover them with nonadherent pads and an Juiec wrap or nonadherent wrap. Prescriptions: Amoxicillin/Potassium Clav [Augmentin 875-125 Tablet] 1 tab PO BID #14 tab Referrals: SAMI BONILLA PA-C [Primary Care Provider] - Follow up in 3-5 days JOEL GNOZALEZ MD [ACTIVE STAFF] - Follow up in 3-5 days ANDREY HUYNH JR, DO [ACTIVE PROVISIONAL STAFF] - Follow up in 3-5 days
[2019-12-21 15:06] VITALS: BP 142/68
== END 2019-12-21 15:09 | disposition home or self-care (01) ==
LOC: ER 12:51
DX: S80.212A Abrasion, left knee, initial encounter (principal); S80.211A Abrasion, right knee, initial encounter; S60.512A Abrasion of left hand, initial encounter; S60.511A Abrasion of right hand, initial encounter; S50.812A Abrasion of left forearm, initial encounter; S50.811A Abrasion of right forearm, initial encounter; S00.81XA Abrasion of other part of head, initial encounter; S00.93XA Contusion of unspecified part of head, initial encounter; R51 Headache; W10.1XXA Fall (on)(from) sidewalk curb, initial encounter; Y93.89 Activity, other specified; Y92.538 Other ambulatory health services establishments as the place of occurrence of the external cause; I67.82 Cerebral ischemia; I10 Essential (primary) hypertension; I48.91 Unspecified atrial fibrillation; Z79.02 Long term (current) use of antithrombotics/antiplatelets; Z88.6 Allergy status to analgesic agent; Z88.5 Allergy status to narcotic agent; Z87.892 Personal history of anaphylaxis; Z91.030 Bee allergy status
CPT/HCPCS: 99284; 73564; 73130; 70450; A9270

== ENCOUNTER 2020-02-01 00:38 | Emergency (ER) | payer MEDICARE, BC ==
--- NOTE | 2020-02-01 01:09 | ER Document Report ---
ED General - General Mode of Arrival: Medic Information source: Relative, Emergency Med Personnel Cannot obtain history due to: Altered mental status TRAVEL OUTSIDE OF THE [place] IN LAST 30 DAYS: No - HPI Onset: This morning Onset/Duration: Sudden, Persistent, Worse Quality of pain: No pain Severity: None Pain Level: Denies Associated symptoms: Weakness Exacerbated by: Denies Relieved by: Denies Similar symptoms previously: Yes Recently seen / treated by doctor: Yes <VERONA GIVENS JR - Last Filed: 02/01/20 01:01> <ROB ADAMES - Last Filed: 02/01/20 03:21> - General Chief Complaint: Altered Mental Status Stated Complaint: ALTERED MENTAL STATUS Time Seen by Provider: 02/01/20 00:59 Primary Care Provider: SAMI BONILLA PA-C [Primary Care Provider] - Follow up as needed Notes: 79-year-old female arrives by EMS with chief complaint of acute mental status changes. Family reported the patient has having confusion the day while talking to her over the phone. This includes Delia Koroma and Svetlana Koroma granddaughter and [id number] respectively. They advised EMS staff that patient usually has UTI causing sepsis and mental status changes in the past. Medical records electronic have the patient admitted for UTI sepsis and acute mental status changes and June 2019 by [facility] and also was seen earlier this year by [facility] patient does not meet any exclusion criteria for TPA at this time. I have reviewed the risks and benefits of administration of TPA with the family at the bedside. We have reviewed the risks of intracranial bleed and the possible benefits of increased functional independence at 90 days with the use of TPA. In December 2019 for falls and head injury. Patient has a history of syncope hypertension UTI sepsis (VERONA GIVENS JR) - Related Data Allergies/Adverse Reactions: fentanyl [From Duragesic] Allergy (Mild, Verified 08/03/19 11:27) felt weird, couldn't be still bee venom protein (honey bee) Allergy (Verified 08/03/19 11:27) Anaphylaxis Past Medical History - General Information source: Relative, Emergency Med Personnel - Social History Smoking Status: Unknown if Ever Smoked Cigarette use (# per day): No Chew tobacco use (# tins/day): No Smoking Education Provided: No Frequency of alcohol use: None Drug Abuse: None Lives with: Family Family History: Reviewed & Not Pertinent, Hypertension, Other - Mom had end stage kidney disease Patient has suicidal ideation: No Patient has homicidal ideation: No - Past Medical History Cardiac Medical History: Reports: Hx Atrial Fibrillation, Hx Hypertension - ON MEDS Denies: Hx Congestive Heart Failure, Hx Coronary Artery Disease, Hx Heart Attack, Hx Heart Murmur Pulmonary Medical History: Reports: Hx Asthma - H/O WHEN YOUNGER, NO PRESENT TREATMENT, Hx Pneumonia - "YRS AGO" Denies: Hx Bronchitis, Hx COPD, Hx Tuberculosis Neurological Medical History: Denies: Hx Cerebrovascular Accident, Hx Seizures Renal/ Medical History: Reports: Hx Kidney Stones. Denies: Hx Peritoneal D ialysis GI Medical History: Reports: Hx Gastroesophageal Reflux Disease, Hx Hiatal Hernia, Hx Ulcer. Denies: Hx Hepatitis Musculoskeletal Medical History: Reports Hx Arthritis - GENERALIZED Psychiatric Medical History: Reports: Hx Depression Infectious Medical History: Denies: Hx Hepatitis Past Surgical History: Reports: Hx Appendectomy, Hx Hysterectomy, Hx Neurologic Surgery - Neck fusion, Hx Orthopedic Surgery. Denies: Hx Bowel Surgery, Hx Mastectomy, Hx Open Heart Surgery, Hx Pacemaker - Immunizations Hx Diphtheria, Pertussis, Tetanus Vaccination: Yes Hx Pneumococcal Vaccination: 09/01/13 <VERONA GIVENS JR - Last Filed: 02/01/20 01:01> Review of Systems - Review of Systems Constitutional: See HPI, Weakness EENT: No symptoms reported Cardiovascular: No symptoms reported Respiratory: No symptoms reported Gastrointestinal: No symptoms reported Genitourinary: No symptoms reported Female Genitourinary: No symptoms reported Musculoskeletal: No symptoms reported Skin: No symptoms reported Hematologic/Lymphatic: No symptoms reported Neurological/Psychological: See HPI, Confusion, Weakness <VERONA GIVENS JR - Last Filed: 02/01/20 01:01> Physical Exam - Vital signs Interpretation: Normal, Other - EMS vital signs include 140/76 blood pressure pulse of 71 respiration 16/min saturation 97% on room air with BGL 101 and temperature 98.8 - General General appearance: Alert - HEENT Head: Normocephalic, Atraumatic Eyes: Normal Conjunctiva: Normal Cornea: Normal Extraocular movements intact: Yes Pupils: PERRL Nasal: Normal Mouth/Lips: Normal Mucous membranes: Normal Pharynx: Normal Neck: Normal - Respiratory Respiratory status: No respiratory distress Chest status: Nontender Breath sounds: Normal Chest palpation: Normal - Cardiovascular Rhythm: Regular Heart sounds: Normal auscultation Murmur: No - Abdominal Inspection: Normal Distension: No distension Bowel sounds: Normal Tenderness: Nontender Organomegaly: No organomegaly - Rectal Stool: Other - deferred - Genitourinary Speculum exam: Other - deferred - Back Back: Normal - Extremities General upper extremity: Normal inspection General lower extremity: Normal inspection - Neurological Neuro grossly intact: Yes Cognition: Confused Orientation: Disoriented to time, Disoriented to events [place] Coma Scale Eye Opening: Spontaneous Jar[place] Coma Scale Verbal: Oriented [place] Coma Scale Motor: Obeys Commands [place] Coma Scale Total: 15 Speech: Normal Cranial nerves: Normal Cerebellar coordination: Normal Motor strength normal: LUE, RUE, LLE, RLE - Psychological Associated symptoms: Normal affect - Skin Skin Temperature: Warm Skin Moisture: Dry Skin Color: Normal <VERONA GIVENS JR - Last Filed: 02/01/20 01:01> - Vital signs Vitals: Resp Pulse Ox 8 L 97 02/01/20 00:44 02/01/20 00:44 Course - Laboratory Result Diagrams: 02/01/20 00:56 02/01/20 00:56 <ROB ADAMES - Last Filed: 02/01/20 03:21> - Re-evaluation Re-evalutation: I am told on report that plan is for patient to be admitted if concerning findings are noted and if her work-up is unremarkable patient can be discharged home with clinical impression of transient alteration of awareness. CT of the head unremarkable, chest x-ray unremarkable, CBC unremarkable. Chemistry shows mildly elevated BUN and CK, creatinine is slightly increased from prior but not significantly elevated. Troponin negative, remaining work-up nonspecific. Urine has small amount of hematuria but no overt infection, culture has been placed. Vital signs unremarkable. On my evaluation at bedside patient is oriented to person, place, events, she is cooperative, smiling, well- appearing. Patient is requesting to be discharged. Because patient is clearly not delirious and her work-up is unremarkable patient will be given some IV fluids and then will be discharged back home with return cautions. Patient states appreciation and agreement with plan. (ROB ADAMES) - Vital Signs Vital signs: Temp Pulse Resp BP Pulse Ox 99.1 F 17 94 02/01/20 01:02 02/01/20 01:00 02/01/20 01:00 - Laboratory Laboratory results interpreted by me: 02/01/20 02/01/20 02/01/20 00:56 00:56 01:13 RBC 3.65 L MCV 100 H RDW 15.0 H BUN 24 H Est GFR ( Amer) 52 L Est GFR (MDRD) Non-Af 43 L Creatine Kinase 358 H Urine Blood MODERATE H Critical Care Note - Critical Care Note Total time excluding time spent on procedures (mins): 90 <VERONA GIVENS JR - Last Filed: 02/01/20 01:01> - Critical Care Note Comments: turned over to Rob at 0200 for disposition (VERONA GIVENS JR) Discharge <VERONA GIVENS JR - Last Filed: 02/01/20 01:01> <ROB ADAMES - Last Filed: 02/01/20 03:21> - Discharge Clinical Impression: Transient alteration of awareness Condition: Stable Disposition: HOME, SELF-CARE Additional Instructions: Your work-up does show some dehydration, you have been treated for this, no other concerning findings were noted on your evaluation and testing tonight. Follow-up with primary care for additional management. Return for any concerning symptoms including developing fever, difficulty breathing, vomiting, confusion, decreased responsiveness, or any other concerning symptoms. Referrals: SAMI BONILLA PA-C [Primary Care Provider] - 02/03/20
[2020-02-01 01:36] LABS: APPEARANCE,URINE CLEAR; BILIRUBIN,URINE NEGATIVE (NEGATIVE); COLOR,URINE STRAW; GLUCOSE, URINE NEGATIVE (NEGATIVE); KETONES,URINE NEGATIVE (NEGATIVE); LEUKOCYTE ESTERASE,URINE NEGATIVE (NEGATIVE); NITRITE,URINE NEGATIVE (NEGATIVE); PROTEIN,URINE NEGATIVE (NEGATIVE); UROBILINOGEN,URINE NEGATIVE mg/dL (<2.0)
[2020-02-01 01:49] LABS: ABSOLUTE EOSINOPHILS # (AUTO) 0.1 10^3/uL (0.0-0.6); ABSOLUTE LYMPHOCYTES (AUTO) 1.7 10^3/uL (0.5-4.7); ABSOLUTE MONOCYTES (AUTO) 0.4 10^3/uL (0.1-1.4); ABSOLUTE NEUT (AUTO) 2.7 10^3/uL (1.7-8.2); BASOPHILS % (AUTO) 0.4 % (0-2); EOSINOPHILS % (AUTO) 2.6 % (0-6); HEMATOCRIT 36.5 % (36.0-47.0); LYMPHOCYTES % (AUTO) 34.4 % (13-45); MEAN CORPUSCULAR HEMOGLOBIN 32.9 pg (27.0-33.4); MEAN CORPUSCULAR HGB CONC 32.9 g/dL (32.0-36.0); MEAN CORPUSCULAR VOLUME 100 fl (80-97); MONOCYTES % (AUTO) 7.3 % (3-13); PLATELET COUNT 223 10^3/uL (150-450); RED BLOOD COUNT 3.65 10^6/uL (3.72-5.28); SEGMENTED NEUTROPHILS % (AUTO) 55.3 % (42-78); TOTAL CELLS COUNTED % (AUTO) 100 %; WHITE BLOOD COUNT 4.9 10^3/uL (4.0-10.5)
[2020-02-01 02:02] LABS: ALBUMIN 4.5 g/dL (3.5-5.0); ALKALINE PHOSPHATASE 53 U/L (38-126); ANION GAP 8 (5-19); ASPARTATE AMINO TRANSFERASE 35 U/L (14-36); BILIRUBIN,TOTAL 0.6 mg/dL (0.2-1.3); BLOOD UREA NITROGEN 24 mg/dL (7-20); CARBON DIOXIDE 26 mmol/L (22-30); CHLORIDE 106 mmol/L (98-107); CREATINE KINASE 358 U/L (30-135); GLUCOSE 97 mg/dL (75-110); POTASSIUM 4.5 mmol/L (3.6-5.0); TOTAL PROTEIN 7.4 g/dL (6.3-8.2)
--- NOTE | 2020-02-01 02:41 | RADIOLOGY REPORT (SQ) ---
CLINICAL INDICATION: ams changes. TECHNIQUE: A single portable AP view was obtained of the chest at 0219 hours. COMPARISON: None available. FINDINGS: The cardiomediastinal silhouette is prominent. The lungs demonstrate chronic changes. No evidence of effusion or pneumothorax. Osteoarthritis. IMPRESSION: No evidence of active intrathoracic disease.
--- NOTE | 2020-02-01 02:52 | RADIOLOGY REPORT (SQ) ---
EXAM DESCRIPTION: CT head without contrast CLINICAL HISTORY: 79 years Female, ams changes COMPARISON: CT head 12/21/2019 TECHNIQUE: Axial images of the head were performed without the use of intravenous contrast, with sagittal and coronal reformatted images. This exam was performed according to our departmental dose-optimization program which includes use of Automated Exposure Control, adjustment of the mA and/or kV according to patient size and/or use of iterative reconstruction technique. FINDINGS: No evidence of acute hemorrhage or infarct. No evidence of mass or hydrocephalus. There is cortical atrophy and chronic white matter ischemic changes. There is no significant change, as compared with the prior CT scan. IMPRESSION: No acute finding.
[2020-02-01] MEDS ORDERED: NORMAL SALINE 500 ML IV ONE (03:17)
[2020-02-01 05:23] VITALS: BP 131/67
--- NOTE | 2020-02-01 19:36 | EKG REPORT ---
SEVERITY:- ABNORMAL ECG - SINUS RHYTHM PROBABLE LEFT VENTRICULAR HYPERTROPHY : Confirmed by: Ben Mei 01-Feb-2020 19:35:43
== END 2020-02-01 05:41 | disposition home or self-care (01) ==
LOC: ER 00:38
DX: R40.4 Transient alteration of awareness (principal); R41.0 Disorientation, unspecified; R53.1 Weakness; R31.9 Hematuria, unspecified; I10 Essential (primary) hypertension; J45.909 Unspecified asthma, uncomplicated; Z87.440 Personal history of urinary (tract) infections
CPT/HCPCS: 93005; 99291; 99292; 96360; 36415; 87040; 87086; 82550; 83605; 85025; 80053; 81001; 84484; 71045; 93010; 70450; J7040

== ENCOUNTER → 2020-06-13 | Outpatient (CLI) | payer MEDICARE, BC ==
--- NOTE | 2020-06-13 15:23 | RADIOLOGY REPORT (SQ) ---
EXAM DESCRIPTION: CAROTID DOPPLER IMAGES COMPLETED DATE/TIME: 06/13/2020 3:08 pm REASON FOR STUDY: AMAUROSIS FUGAX G45.3 AMAUROSIS FUGAX COMPARISON: None. TECHNIQUE: Grayscale ultrasound, Doppler velocity and spectra, and color Doppler images acquired of the extra-cranial carotid and vertebral arteries. Images stored on PACS. LIMITATIONS: None. FINDINGS: RIGHT CAROTID CCA Velocities: Within normal limits. ICA Velocities Peak systolic 90 cm/s. End diastolic 23 cm/s. Proximal ICA/CCA peak systolic ratio 0.79. There is plaque in the carotid bulb and proximal internal and external carotid. LEFT CAROTID CCA Velocities: Within normal limits. ICA Velocities Peak systolic 186 cm/s. End diastolic 38 cm/s. Proximal ICA/CCA peak systolic ratio 1.81. There is plaque in the carotid bulb and proximal ICA. 50 to 69% stenosis. VERTEBRAL ARTERIES: Antegrade flow. Normal waveforms. SUBCLAVIAN ARTERIES: No finding. OTHER: There is a 19 mm complex nodule in the left lobe of the thyroid gland. IMPRESSION: Atherosclerotic changes bilaterally with 50 to 69% stenosis of the left ICA. Thyroid no dule as described. Recommend thyroid ultrasound. COMMENT: Quality ID #[id number]: Velocity criteria are extrapolated from the diameter data as defined by t he Society of Radiologists in Ultrasound Consensus Conference. Radiology 2003: 229; 340-346. TECHNICAL DOCUMENTATION: JOB ID: [id number] 2010 [employer]- All Rights Reserved Reading location - IP/workstation name: [email or web address]
== END ==
LOC: SP 13:30
PROVIDERS: ATTEND Ophthalmology
DX: G45.3 Amaurosis fugax (principal)
CPT/HCPCS: 93880

== ENCOUNTER → 2020-07-06 | Outpatient (CLI) | payer MEDICARE, BC ==
--- NOTE | 2020-07-06 13:01 | WOMENS IMAGING REPORT ---
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 Selected additional c olor/power Doppler images recorded. All images stored to PACS. LIMITATIONS: None. FINDINGS: RIGHT LOBE: Normal size. Homogeneous echotexture. They are are not small hypoattenuating cystic lesions in the right lobe of the thyroid gland. There is a single complex 1.3 x 0.7 x 1.1 cm lesion which has both hyper echoic and hypoechoic components. It is wider than tall. There is echo genic material. LEFT LOBE: Normal size. Homogeneous echotexture. Complex 1.8 x 1.3 x 1.4 cm largely cystic lesion i t has a mural nodule however. 1.8 x 1.3 x 1.4 cm largely cystic lesion in the left lobe. However th is has a mural nodule. There is a 2nd 1.2 x 0.7 x 0.9 cm solid nodule. ISTHMUS: Normal size. Homogeneous echotexture. 2 small right lesions the largest measures 1.0 x 0.8 cm. OTHER: No other significant finding. IMPRESSION: 1. 1.3 x 0.7 x 1.1 cm TR 4 lesion in the right lobe of the thyroid gland. Based on siz e continued surveillance is recommended. 2. 1.8 x 1.3 x 1.4 cm largely cystic lesion in the left lobe it does have a solid central component. This lesion is indeterminate. Recommend FNA. 3. 1.2 x 0.7 x 0.9 cm solid nodule in the left lobe which corresponds to a TR 3 lesion. Based on si ze no further workup is warranted. TECHNICAL DOCUMENTATION: JOB ID: [id number] 2010 [employer]- All Rights Reserved Reading location - IP/workstation name: [email or web address]
== END ==
LOC: WI 09:46
PROVIDERS: ATTEND Physician Assistant
DX: E04.1 Nontoxic single thyroid nodule (principal)
CPT/HCPCS: 76536